=== PATIENT | male | born 1985 | race Two or more races ===

== ENCOUNTER 2023-10-20 15:32 | Inpatient (IN) | payer MEDICAID, OTHER ==
--- NOTE | 2023-10-20 16:58 | ED ---
Psych HPI - General Chief Complaint: Psychiatric Symptoms Stated Complaint: Depression Time Seen by Provider: 10/20/23 16:04 Source: patient, RN notes reviewed Mode of arrival: ambulatory - History of Present Illness Initial Comments: 37-year-old male with a history of drug abuse in the past also history of depression who is here for evaluation feeling depressed and like he does not want to be here anymore. He has no particular plan on hurting himself however. He does state he was discharged from his [facility] house after visiting his children earlier today. He is not sure why he was evicted he thought he had this figured out prior. He denies any drugs or alcohol at this time no fevers chills sweats no other complaints MD Complaint: feels depressed - Related Data Allergies Allergy/AdvReac Type Severity Reaction Status Date / Time No Known Allergies Allergy Verified 10/20/23 15:42 Review of Systems ROS Statement: Those systems with pertinent positive or pertinent negative responses have been documented in the HPI. ROS Other: All systems not noted in ROS Statement are negative. Past Medical History Past Medical History: Hypertension History of Any Multi-Drug Resistant Organisms: None Reported Past Psychological History: Bipolar, Depression, Schizophrenia Smoking Status: Current every day smoker Past Alcohol Use History: None Reported Past Drug Use History: None Reported General Exam - General Exam Comments Initial Comments: This is a well-developed well-nourished awake alert oriented x 4 male General appearance: alert, in no apparent distress Head exam: Present: atraumatic, normocephalic, normal inspection Eye exam: Present: normal appearance, PERRL, EOMI. Absent: scleral icterus, conjunctival injection, periorbital swelling ENT exam: Present: normal exam, mucous membranes moist Neck exam: Present: normal inspection. Absent: tenderness, meningismus, lymphadenopathy Respiratory exam: Present: normal lung sounds bilaterally. Absent: respiratory distress, wheezes, rales, rhonchi, stridor Cardiovascular Exam: Present: regular rate, normal rhythm, normal heart sounds. Absent: systolic murmur, diastolic murmur, rubs, gallop, clicks GI/Abdominal exam: Present: soft, normal bowel sounds. Absent: distended, tenderness, guarding, rebound, rigid Extremities exam: Present: normal inspection, full ROM, normal capillary refill. Absent: tenderness, pedal edema, joint swelling, calf tenderness Back exam: Present: normal inspection Neurological exam: Present: alert, oriented X3, CN II-XII intact Psychiatric exam: Present: depressed, flat affect Skin exam: Present: warm, dry, intact, normal color. Absent: rash Course Vital Signs 10/20/23 15:35 Temperature 98.7 F Pulse Rate 111 H Respiratory 18 Rate Blood Pressure 138/76 O2 Sat by Pulse 98 Oximetry Medical Decision Making - Medical Decision Making The patient was evaluated by EPS service for not to be a risk himself or anyone else he will be discharged home he has a bed lined up for tonight at [facility]. Was pt. sent in by a medical professional or institution (, JENNIFER, GRINDING MACHINE OPERATOR AUTOMATIC, urgent care, hospital, or [facility]...) When possible be specific @ -No Did you speak to anyone other than the patient for history (EMS, parent, family, police, friend...)? What history was obtained from this source @ -No Did you review nursing and triage notes (agree or disagree)? Why? @ -I reviewed and agree with nursing and triage notes Were old charts reviewed (outside hosp., previous admission, EMS record, old EKG, old radiological studies, urgent care reports/EKG's, [facility] records)? Report findings @ -No old charts were reviewed Differential Diagnosis (chest pain, altered mental status, abdominal pain women, abdominal pain men, vaginal bleeding, weakness, fever, dyspnea, syncope, headache, dizziness, GI bleed, back pain, seizure, CVA, palpatations, mental health, musculoskeletal)? @ -Pression] EKG interpreted by me (3pts min.). @ -Not indicated X-rays interpreted by me (1pt min.). @ -None done CT interpreted by me (1pt min.). @ -None done U/S interpreted by me (1pt. min.). @ -None done What testing was considered but not performed or refused? (CT, X-rays, U/S, labs)? Why? @ -None What meds were considered but not given or refused? Why? @ -None Did you discuss the management of the patient with other professionals (professionals i.e. , PA, GRINDING MACHINE OPERATOR [employer]OMATIC, lab, RT, psych nurse, social services analyst, retail merchandiser, teacher, forest fire management officer, case making machine operator)? Give summary @ -No Was smoking cessation discussed for >3mins.? @ -No Was critical care preformed (if so, how long)? @ -No Were there social determinants of health that impacted care today? How? (Homelessness, low income, unemployed, alcoholism, drug addiction, transportation, low edu. Level, literacy, decrease access to med. care, detention, rehab)? @ -Homeless Was there de-escalation of care discussed even if they declined (Discuss DNR or withdrawal of care, Hospice)? DNR status @ -No What co-morbidities impacted this encounter? (DM, HTN, Smoking, COPD, CAD, Cancer, CVA, ARF, Chemo, Hep., AIDS, mental health diagnosis, sleep apnea, morbid obesity)? @ -Depression, history of drug abuse Was patient admitted / discharged? Hospital course, mention meds given and route, prescriptions, significant lab abnormalities, going to OR and other pertinent info. @ -[hospital was discharged with outpatient follow-up Undiagnosed new problem with uncertain prognosis? @ -No Drug Therapy requiring intensive monitoring for toxicity (Heparin, Nitro, Insulin, Cardizem)? @ -No Were any procedures done? @ -No Diagnosis/symptom? @ -Depression Acute, or Chronic, or Acute on Chronic? @Chronic Uncomplicated (without systemic symptoms) or Complicated (systemic symptoms)? @ -Default Side effects of treatment? @ -No Exacerbation, Progression, or Severe Exacerbation? @ -No Poses a threat to life or bodily function? How? (Chest pain, [place], [place], pneumonia, PE, COPD, DKA, ARF, appy, cholecystitis, CVA, Diverticulitis, Homicidal, Suicidal, threat to staff... and all critical care pts) @ -No Disposition Clinical Impression: Depression Disposition: HOME SELF-CARE Instructions (If sedation given, give patient instructions): Depression (ED) Is patient prescribed a controlled substance at d/c from ED?: No Referrals: None,Stated [Primary Care Provider] - 1-2 days Time of Disposition: 17:35 Decision Date: 10/20/23 Decision Time: 17:35
--- NOTE | 2023-10-20 19:09 | ED ---
Medical Decision Making - Medical Decision Making The patient is now voicing suicidal thoughts and ideation. Patient will now be admitted per EPS. Disposition Clinical Impression: Depression, Suicidal ideation Disposition: TRANSFER TO PSYCH HOSP/UNIT Instructions (If sedation given, give patient instructions): Depression (ED) Referrals: None,Stated [Primary Care Provider] - 1-2 days Time of Disposition: 19:08 Decision Date: 10/20/23 Decision Time: 19:09
[2023-10-20] MEDS ORDERED: traZODone HCL 50 MG TAB PO PRN (23:27)
[2023-10-20] MEDS ORDERED: IBUPROFEN 600 MG TAB PO PRN (23:27)
[2023-10-20] MEDS ORDERED: LORazepam 2 MG/ML INJ IM PRN (23:27)
[2023-10-20] MEDS ORDERED: ACETAMINOPHEN TAB 325 MG TAB PO PRN (23:27)
[2023-10-20] MEDS ORDERED: HALOPERIDOL LACTATE 5 MG/ML 1 ML VIAL IM PRN (23:27)
[2023-10-20] MEDS ORDERED: MAGNESIUM HYDROXIDE 2,400 MG/30 ML CUP PO PRN (23:27)
[2023-10-21] MEDS: NICOTINE 14MG/24HR PATCH TRANSDERM SCH (08:24)
[2023-10-21 09:05] LABS: Appearance,Urine Clear (Clear); Bilirubin,Urine Negative (Negative); Blood,Urine Negative (Negative); Color,Urine Colorless; Glucose,Urine (UA) Negative (Negative); Ketones,Urine Negative (Negative); Leukocyte Esterase,Urine Small (Negative); Nitrite,Urine Negative (Negative); Protein,Urine Negative (Negative); Specific Gravity,Urine 1.004 (1.001-1.035); Squamous Epithelial Cell,Urine <1 /hpf (0-4); Urobilinogen,Urine <2.0 mg/dL (<2.0); WBC,Urine 1 /hpf (0-5)
[2023-10-21 11:00] LABS: Basophils % (A) 0 %; Eosinophils # (A) 0.2 k/uL (0-0.7); Eosinophils % (A) 2 %; HCT 42.6 % (39.0-53.0); HGB 13.7 gm/dL (13.0-17.5); Lymphocytes # (A) 2.7 k/uL (1.0-4.8); Lymphocytes % (A) 31 %; MCH 29.3 pg (25.0-35.0); MCHC 32.2 g/dL (31.0-37.0); Mean Platelet Volume 7.7; Monocytes # (A) 0.5 k/uL (0-1.0); Monocytes % (A) 5 %; Neutrophils # (A) 5.1 k/uL (1.3-7.7); Neutrophils % (A) 60 %; Platelet Count 386 k/uL (150-450); RBC 4.69 m/uL (4.30-5.90); RDW 13.8 % (11.5-15.5); WBC 8.5 k/uL (3.8-10.6)
[2023-10-21 11:13] LABS: ALT 20 U/L (4-49); AST 23 U/L (17-59); African American GFR (CKD) >90 (>60 ml/min/1.73 sqM); Albumin 3.9 g/dL (3.5-5.0); Alkaline Phosphatase 75 U/L (38-126); Anion Gap 7 mmol/L; Bilirubin, Delta 0.2 mg/dL (0.0-0.2); Bilirubin,Unconjugated 0.9 mg/dL (0.0-1.1); Blood Urea Nitrogen 19 mg/dL (9-20); Calcium 9.7 mg/dL (8.4-10.2); Carbon Dioxide 31 mmol/L (22-30); Chloride 105 mmol/L (98-107); Glucose 85 mg/dL (74-99); Non-African American GFR(CKD) >90 (>60 ml/min/1.73 sqM); Potassium 4.3 mmol/L (3.5-5.1); Sodium 143 mmol/L (137-145); Total Bilirubin 1.1 mg/dL (0.2-1.3); Total Protein 7.3 g/dL (6.3-8.2)
--- NOTE | 2023-10-21 12:33 | P.HP ---
Psychiatric H&P - . H&P Date: 10/21/23 History & Physical: Allergies Allergy/AdvReac Type Severity Reaction Status Date / Time No Known Allergies Allergy Verified 10/20/23 19:29 Vital Signs Temp 97.8 F 10/21/23 06:42 Pulse 104 H 10/21/23 06:42 Resp 18 10/21/23 06:42 BP 106/55 10/21/23 06:42 Pulse Ox 97 10/20/23 23:26 FiO2 Intake & Output 10/20/23 10/21/23 10/21/23 18:59 06:59 18:59 Weight 99.79 kg 100.2 kg Laboratory Last Values Influenza Type A (PCR) Not Detected (Not Detectd) 10/20/23 22:05 Influenza Type B (PCR) Not Detected (Not Detectd) 10/20/23 22:05 RSV (PCR) Not Detected (Not Detectd) 10/20/23 22:05 SARS-CoV-2 (PCR) Not Detected (Not Detectd) 10/20/23 22:05 10/21/23 09:00 IDENTIFYING DATA: Patient is a 37-year-old male was living in a 3/4 house. 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 HPI: Patient presented to the hospital on 10/19. As per ED note, patient was kicked out of his sober living house, after visiting with his children. Patient initially denied SI, but upon discharge from the ED, patient voiced SI and thoughts. Upon todays interview, patient states he was on an outing with with [facility] house, but took off and stayed the night with his kids, and when he got back the next morning, they told him they were kicking his out. Patient states that he is sober for 41 days. States he is feeling hopeless, and worthless. Other stressors include missing his children. Patient states that he has problems initiating sleep, but once he is asleep, he stays asleep. He states he has increased anxiety. continues state that he is feeling very depressed and hopeless, worthless. He did state that he feels like he is having suicidal thoughts however these are passive thoughts no intent or plan. He describes them as "I just don't want to be here" but patient currently denies homicidal ideations intent or plan. At this time patient denies any auditory or visual hallucinations. Patient denies any flight of ideas racing thoughts and increased in goal directed behavior. Patient admits to using nicotine. PAST PSYCHIATRIC HISTORY: Patient states that he was [facility]. He does not follow up with anyone. States he is on visteral, Remeron, and abilify. Attempted suicide when he was 12 by hanging. PMH:As per ER note ALLERGIES: as per EMR CHEMICAL DEPENDENCY HISTORY: as per HPI FAMILY PSYCHIATRIC/SUBSTANCE USE HISTORY: mother has depression SOCIAL HISTORY: Patient was born and raised in [place], [place] Graduated high school. Works as a cook. homeless. [facility], for possession of a firearm, in 2020. MENTAL STATUS EXAM: General Appearance: Patient appears to be stated age is alert, directable, and attempts to cooperate. Patient appears to have poor hygiene and grooming. Malodorous. Wearing a hospital gown, multiple tattoos on body and face Behavior: Patient is seated without any agitated behavior. Attempts to cooperate. Speech: Patient's speech is fluent and nonpressured. Mood/Affect: Patient reports their mood is hopeless and depressed, affect is congruent and constricted. Suicidality/Homicidality: Patient denies having any homicidal ideation intent or plan. Denies any suicidal ideations intent or plan Perceptions: Patient denies any visual hallucinations [and denies any auditory hallucinations Though content/process: There is no evidence of any delusional thought content and thought process is linear and goal-directed. Focused on his stressors Memory and concentration: AOX3, grossly intact for the purposes of this session. Can spell "WORLD" backward Judgment and insight: poor STRENGTHS/WEAKNESSES: strength is that patient is resilient. Weakness is that patient has poor judgment and is impulsive INTELLECT: average IMPRESSIONS: bipolar disorder, depressed episode adjustment disorder with disturbance in mood and anxiety cocaine use disorder, in early remission opoid use disorder, in early remission nicotine dependance PLAN: -Patient is admitted under voluntary status to MHU for stabilization of psychiatric symptoms and safety. Patient has signed adult voluntary form and medication consent and is placed in patient's chart. -Medications : Will start patient on Abilify 5mg daily for mood stabilization, Zoloft 50 daily mood/anxiety Doxepin 10mg qhs for sleep, visteral 50 mg [id number] prn for anxiety. -Ativan and Haldol PRN for agitation/aggression -Patient was informed of the risks, benefits and side effects of the medication and patient verbally consented to taking the medications. -Internal Medicine consult to perform medical evaluation and physical. -NRT - nicotine patch -SW on board for discharge planning. Encourage patient to participate in groups to work on coping skills. 10/21/23 12:14 10/21/23 12:30
[2023-10-21] MEDS: SERTRALINE 50 MG TAB PO SCH (12:53)
[2023-10-21 15:56] LABS: Chol/HDL Ratio 3.03 Ratio; LDL Cholesterol,Calculated 106.1 mg/dL (0.0-131.0); VLDL Calculation 15.06 mg/dL (5.00-40.00)
--- NOTE | 2023-10-21 17:42 | P.MDCNMH ---
History of Present Illness H&P Date: 10/21/23 Chief Complaint: medical evaluation 37-year-old man with obesity, class I, presented for mental health evaluation. Medicine was consulted for medical management. Patient has no complaints at this time. He was woken up from sleep where he was noted to have heavy snoring and appeared to have some mild disorientation until he was fully awake. Patient says that he has suspected he has had sleep apnea in the past and tends to snore and feel excessive daytime sleepiness. Otherwise, he denies a history of hypertension, hyperlipidemia, heart disease, stroke, kidney disease. Today, patient is afebrile, 114/54, heart rate 104, 97% on room air. CBC is unremarkable. Basic metabolic panel shows CO2 of 31, otherwise unremarkable. Lipid panel is unremarkable. UA shows small leukocyte esterase, otherwise unremarkable. Influenza A, B, RSV, COVID were negative. No imaging to review. All Systems reviewed and pertinent positives and negatives noted in HPI, all other symptoms are negative Gen: In NAD, non-toxic HEENT: normocephalic, atraumatic, hearing acuity is intant, mucous membranes moist CVS: perfusing all extremities well, no pitting edema, Respiratory: symmetric chest expansion, no accessory muscle use, GI: soft, NTTP, ND, : no suprapubic tenderness, no CVA tenderness MSK/Derm: no rashes, cyanosis Neuro: CN II-XII intact, no motor weakness, Psych: cooperative, euthymic mood, judgment and insight is intact Labs and imaging as above Assessment/plan: Obesity, class I Suspected sleep apnea, obstructive -outpatient weight loss referral -diet and exercise counseling, consider serologist consult -outpatient sleep study referral Depression -care per primary team Pt is full code. Past Medical History Past Medical History: Hypertension History of Any Multi-Drug Resistant Organisms: None Reported Past Surgical History: No Surgical Hx Reported Past Psychological History: Bipolar, Depression, Schizophrenia Smoking Status: Current every day smoker Past Alcohol Use History: None Reported Past Drug Use History: Cocaine Medications and Allergies Home Medications Medication Instructions Recorded Confirmed Type ARIPiprazole [Abilify] 2 mg PO DAILY 10/20/23 10/20/23 History Doxepin [SINEquan] 10 mg PO BID-W/MEALS 10/20/23 10/20/23 History Mirtazapine [Remeron] 15 mg PO HS 10/20/23 10/20/23 History Allergies Allergy/AdvReac Type Severity Reaction Status Date / Time No Known Allergies Allergy Verified 10/20/23 19:29 Physical Exam Osteopathic Statement: *. No significant issues noted on an osteopathic structural exam other than those noted in the History and Physical/Consult. Vitals: Vital Signs Temp Pulse Resp BP Pulse Ox 10/21/23 06:42 97.8 F 104 H 18 106/55 10/20/23 23:26 97.1 F L 95 16 014/54 97 Intake and Output 10/21/23 10/21/23 10/21/23 06:59 14:59 22:59 Other: Weight 100.2 kg Cranial Nerve Examination - Cranial Nerves Cranial Nerve II- Optic: Intact Cranial Nerve III- Oculomotor: Intact Cranial Nerve IV- Trochlear: Intact Cranial Nerve V- Trigeminal: Intact Cranial Nerve - Abducens: Intact Cranial Nerve VII- Facial: Intact Cranial Nerve VIII- Auditory: Intact Cranial Nerve IX- Glossopharyngeal: Intact Cranial Nerve X- Vagus: Intact Cranial Nerve XI- Accessory: Intact Cranial Nerve XII- Hypoglossal: Intact Results CBC & Chem 7: 10/21/23 10:02 10/21/23 10:02 Labs: Abnormal Lab Results - Last 24 Hours (Table) 10/21/23 10/21/23 Range/Units 08:52 10:02 Carbon Dioxide 31 H (22-30) mmol/L Ur Leukocyte Esterase Small H (Negative)
[2023-10-21 19:46] LABS: Urine Alcohol Negative (Negative); Urine Barbiturate Negative (Negative); Urine Cocaine Positive (Negative); Urine Methadone Negative (Negative); Urine Opiates Negative (Negative); Urine Phencyclidine Negative (Negative)
[2023-10-21] MEDS: DOXEPIN 10 MG CAP PO SCH (20:09)
[2023-10-21] MEDS: MAG HYDROX/AL HYDROX/SIMETH 355 ML BOTTLE PO PRN (20:30)
[2023-10-21] MEDS: hydrOXYzine pamoate 25 MG CAP PO PRN (22:15)
[2023-10-22 07:25] VITALS: TEMP 97.7
[2023-10-22] MEDS: ARIPiprazole 5 MG TAB PO SCH (08:26)
--- NOTE | 2023-10-22 09:42 | P.PN ---
Progress Note - Text Progress Note Date: 10/22/23 Interval History: Patient was seen in his room and was directable and agreeable to speak with wr iter in the office. Patient stated that he did not sleep well last night, and had problems initiating sleep, scientific writer spoke to patient about increasing his doxepin, patient agreeable. Patient states his mood and anxiety are not improving yet. Patient is not attending groups. Encouraged patient to do so. Patient claims his appetite is good. Patient offered no other complaints. At this time patient denies any suicidal or homicidal ideations, intent or plan. Patient denies any auditory, visual hallucinations and denies any paranoia or delusions. Patient denies any side effects from the medications and has been compliant with meds. MENTAL STATUS EXAM: General Appearance: Patient appears to be stated age is alert, directable, and attempts to cooperate. Patient appears to have poor hygiene and grooming. Malodorous. Wearing a hospital gown, multiple tattoos on body and face Behavior: Patient is seated without any agitated behavior. Attempts to cooperate. Speech: Patient's speech is fluent and nonpressured. Mood/Affect: Patient reports their mood is hopeless and depressed, affect is congruent and constricted. Suicidality/Homicidality: Patient denies having any homicidal ideation intent or plan. Denies any suicidal ideations intent or plan Perceptions: Patient denies any visual hallucinations [and denies any auditory hallucinations Though content/process: There is no evidence of any delusional thought content and thought process is linear and goal-directed. Focused on his stressors Memory and concentration: AOX3, grossly intact for the purposes of this session. Judgment and insight: poor IMPRESSIONS: bipolar disorder, depressed episode adjustment disorder with disturbance in mood and anxiety cocaine use disorder, in early remission opoid use disorder, in early remission nicotine dependance PLAN: -Patient is admitted under voluntary status to MHU for stabilization of psychiatric symptoms and safety. -Medications : Abilify 5mg daily for mood stabilization, increase Zoloft 100 daily mood/anxiety increase Doxepin 25mg qhs for sleep, visteral 50 mg [id number] prn for anxiety. -Ativan and Haldol PRN for agitation/aggression -NRT - nicotine patch -SW on board for discharge planning. Encourage patient to participate in groups to work on coping skills. likely discharge [facility]day to [facility]
[2023-10-22] MEDS: LORazepam 1 MG TAB PO PRN (18:35)
[2023-10-22] MEDS: DOXEPIN 25 MG CAP PO SCH (20:35)
[2023-10-23 07:27] VITALS: RESP 16
[2023-10-23] MEDS: SERTRALINE 100 MG TAB PO SCH (08:34)
--- NOTE | 2023-10-23 10:21 | P.PN ---
Progress Note - Text Progress Note Date: 10/23/23 Interval History: Patient was seen in group and was directable and agreeable to speak with newswriter in the office. Patient stated his mood and anxiety are improving mildly, however he is still having some hopeless thoughts. Patient is now attending groups. States he slept well last night. Patient claims his appetite is good. Patient offered no other complaints. At this time patient denies any suicidal or homicidal ideations, intent or plan. Patient denies any auditory, visual hallucinations and denies any paranoia or delusions. Patient denies any side effects from the medications and has been compliant with meds. MENTAL STATUS EXAM: General Appearance: Patient appears to be stated age is alert, directable, and attempts to cooperate. Patient appears to have improving hygiene and grooming. Malodorous. Wearing a hospital gown, multiple tattoos on body and face Behavior: Patient is seated without any agitated behavior. Attempts to cooperate. Speech: Patient's speech is fluent and nonpressured. Mood/Affect: Patient reports their mood is mildly improving, affect is congruent and constricted. Suicidality/Homicidality: Patient denies having any homicidal ideation intent or plan. Denies any suicidal ideations intent or plan Perceptions: Patient denies any visual hallucinations and denies any auditory hallucinations Though content/process: There is no evidence of any delusional thought content and thought process is linear and goal-directed. less Focused on his stressors Memory and concentration: AOX3, grossly intact for the purposes of this session. Judgment and insight: mildly improving IMPRESSIONS: bipolar disorder, depressed episode adjustment disorder with disturbance in mood and anxiety cocaine use disorder, in early remission opoid use disorder, in early remission nicotine dependance PLAN: -Patient is admitted under voluntary status to MHU for stabilization of psychiatric symptoms and safety. -Medications : Abilify 5mg daily for mood stabilization, Zoloft 100 daily mood/anxiety Doxepin 25mg qhs for sleep, visteral 50 mg [id number] prn for anxiety. -Ativan and Haldol PRN for agitation/aggression -NRT - nicotine patch -SW on board for discharge planning. Encourage patient to participate in groups to work on coping skills. likely discharge saturday to half-way, if patient continues to improve
[2023-10-23] MEDS: haloperidoL 5 MG TAB PO PRN (14:15)
[2023-10-24 07:08] VITALS: BP 128/65; PULSE 98
--- NOTE | 2023-10-24 11:21 | P.DS ---
Providers Date of admission: 10/20/23 23:23 Expected date of discharge: 10/24/23 Attending physician: Souleymane Barger MD Consults: 10/20/23 23:27 Consult Physician Routine Consulting Provider: Bradley Enriquez Consult Reason/Comments: Medical H&P Do you want consulting provider notified?: Yes Primary care physician: Stated None - Discharge Diagnosis(es) (1) Bipolar disorder, current episode mixed Current Visit: Yes Status: Acute Priority: High (2) Adjustment disorder with mixed disturbance of emotions and conduct Current Visit: Yes Status: Acute Priority: High (3) Cocaine use disorder, mild, in early remission Current Visit: Yes Status: Acute Priority: Medium (4) Opioid use disorder, mild, in early remission Current Visit: Yes Status: Acute Priority: Medium (5) Nicotine dependence Current Visit: Yes Status: Acute Priority: Low Hospital Course: Admission HPI: Admission note was completed by marketing writer "Patient presented to the hospital on 10/19. As per ED note, patient was kicked out of his sober living house, after visiting with his children. Patient initially denied SI, but upon discharge from the ED, patient voiced SI and thoughts. Upon todays interview, patient states he was on an outing with with [address] house, but took off and stayed the night with his kids, and when he got back the next morning, they told him they were kicking his out. Patient states that he is sober for 41 days. States he is feeling hopeless, and worthless. Other stressors include missing his children. Patient states that he has problems initiating sleep, but once he is asleep, he stays asleep. He states he has increased anxiety. continues state that he is feeling very depressed and hopeless, worthless. He did state that he feels like he is having suicidal thoughts however these are passive thoughts no intent or plan. He describes them as "I just don't want to be here" but patient currently denies homicidal ideations intent or plan. At this time patient denies any auditory or visual hallucinations. Patient denies any flight of ideas racing thoughts and increased in goal directed behavior. Patient admits to using nicotine." Hospital course: Upon admission to the unit patient was directable and agreeable to commence treatment and signed adult voluntary form. Patient was initially fairly depressed, isolative however with time and treatment he eventually got along well with other patients on the unit and followed unit protocol. Patient was compliant with the medications and denied any side effects throughout hospital course. Patient was started on Abilify and increased to dose of 5 mg daily for mood stabilization, Zoloft 100 mg daily for mood/anxiety, doxepin 25 mg nightly for sleep/mood, Vistaril as needed for anxiety. Patient spoke of his stressors and engaged in therapy both group and individual. Patient was also seen by medical team for history and physical exam. Throughout the course of the hospitalization patient gradually improved with regards to mood, anxiety, suicidal thoughts, sleep and became more future oriented with improved insight and judgment. On the day of discharge patient denied any suicidal or homicidal ideations intent or plan denied any auditory or visual hallucinations. Patient endorsed wanting to live for his health and family/kids. The patient denied any access to guns or weapons. Patient denied any paranoia and did not endorse any delusions. Patient does have a significant history of substance abuse and was counseled on abstaining from all substances including alcohol and marijuana. Patient was offered however declined inpatient substance-abuse rehab. Patient elected to do outpatient substance use treatment program through [facility]. Patient was also counseled on the medications and need for regular compliance and was encouraged to follow-up with their outpatient appointment for mental health and also for primary care. personal support worker will assist patient with getting him into the skilled nursing today and set up with outpatient [facility]. Mental status exam: General Appearance: Patient appears to be well-built, several tattoos, stated age is alert, pleasant, and cooperative. Patient is in no acute distress and has improved hygiene and grooming Behavior: Patient is calmly seated without any agitated behavior. Speech: Patient's speech is fluent and nonpressured. Mood/Affect: Patient reports their mood is "good", affect is congruent and euthymic. Suicidality/Homicidality: Patient denies having any suicidal or homicidal ideation intent or plan. Perceptions: Patient denies any auditory or visual hallucinations. Though content/process: There is no evidence of any delusional thought content and thought process is linear and goal-directed. More future oriented Memory and concentration: AOX3, grossly intact for the purposes of this session. Can spell "WORLD" backwards correctly. Judgment and insight: Chronically poor, however has improved with guarded prognosis Impression: bipolar disorder, depressed episode adjustment disorder with disturbance in mood and anxiety cocaine use disorder, in early remission opoid use disorder, in early remission nicotine dependance Plan: -Continue with discharge today as patient has improved and stabilized psychiatrically and is not currently an imminent threat to himself and/or others. Patient will remain at chronically elevated risk for harm to self and/or others due to his impulsivity and polysubstance abuse. -Continue medications: Abilify p.o. 5 mg daily for mood stabilization, Zoloft 100 mg daily for mood/anxiety, doxepin 25 mg nightly for sleep/mood, Vistaril 50 mg daily as needed for anxiety. -Patient was counseled on the need for medication compliance and appropriate follow-up at mental health and also primary care for medical issues. Patient verbalized understanding and agreed. -Social work to help coordinate patient's discharge today to the skilled nursing with [facility] follow-up. Social work also to arrange for patients follow up appointments with [facility] for psychiatric care along with follow up with primary care provider. -Patient counseled on abstaining from recreational drugs and marijuana and alcohol. Was informed/educated on the adverse effects on their physical and mental health. Patient verbally agreed and understood. Patient was offered jacob bstance abuse treatment however declined at this time. -Patient was instructed to return to the hospital or seek immediate medical care if their psychiatric or medical symptoms do worsen or reoccur. Allergies Allergy/AdvReac Type Severity Reaction Status Date / Time No Known Allergies Allergy Verified 10/20/23 19:29 Laboratory Results WBC 8.5 k/uL (3.8-10.6) 10/21/23 10:02 RBC 4.69 m/uL (4.30-5.90) 10/21/23 10:02 Hgb 13.7 gm/dL (13.0-17.5) 10/21/23 10:02 Hct 42.6 % (39.0-53.0) 10/21/23 10:02 MCV 91.0 fL (80.0-100.0) 10/21/23 10:02 MCH 29.3 pg (25.0-35.0) 10/21/23 10:02 MCHC 32.2 g/dL (31.0-37.0) 10/21/23 10:02 RDW 13.8 % (11.5-15.5) 10/21/23 10:02 Plt Count 386 k/uL (150-450) 10/21/23 10:02 MPV 7.7 10/21/23 10:02 Neutrophils % 60 % 10/21/23 10:02 Lymphocytes % 31 % 10/21/23 10:02 Monocytes % 5 % 10/21/23 10:02 Eosinophils % 2 % 10/21/23 10:02 Basophils % 0 % 10/21/23 10:02 Neutrophils # 5.1 k/uL (1.3-7.7) 10/21/23 10:02 Lymphocytes # 2.7 k/uL (1.0-4.8) 10/21/23 10:02 Monocytes # 0.5 k/uL (0-1.0) 10/21/23 10:02 Eosinophils # 0.2 k/uL (0-0.7) 10/21/23 10:02 Basophils # 0.0 k/uL (0-0.2) 10/21/23 10:02 Sodium 143 mmol/L (137-145) 10/21/23 10:02 Potassium 4.3 mmol/L (3.5-5.1) 10/21/23 10:02 Chloride 105 mmol/L (98-107) 10/21/23 10:02 Carbon Dioxide 31 mmol/L (22-30) H 10/21/23 10:02 Anion Gap 7 mmol/L 10/21/23 10:02 BUN 19 mg/dL (9-20) 10/21/23 10:02 Creatinine 0.99 mg/dL (0.66-1.25) 10/21/23 10:02 Est GFR (CKD-EPI)AfAm >90 (>60 ml/min/1.73 sqM) 10/21/23 10:02 Est GFR (CKD-EPI)NonAf >90 (>60 ml/min/1.73 sqM) 10/21/23 10:02 Glucose 85 mg/dL (74-99) 10/21/23 10:[address] Glu mg/dL 120 mg/dL 10/21/23 10:02 Hemoglobin A1c 5.8 % (<=6.0) 10/21/23 10:02 Calcium 9.7 mg/dL (8.4-10.2) 10/21/23 10:02 Total Bilirubin 1.1 mg/dL (0.2-1.3) 10/21/23 10:02 Conjugated Bilirubin 0.0 mg/dL (0.0-0.3) 10/21/23 10:02 Unconjugated Bilirubin 0.9 mg/dL (0.0-1.1) 10/21/23 10:02 Delta Bilirubin 0.2 mg/dL (0.0-0.2) 10/21/23 10:02 AST 23 U/L (17-59) 10/21/23 10:02 ALT 20 U/L (4-49) 10/21/23 10:02 Alkaline Phosphatase 75 U/L (38-126) 10/21/23 10:02 Total Protein 7.3 g/dL (6.3-8.2) 10/21/23 10:02 Albumin 3.9 g/dL (3.5-5.0) 10/21/23 10:02 Triglycerides 75.30 mg/dL (0.00-149.00) 10/21/23 10:02 Cholesterol 181.00 mg/dL (0.00-200.00) 10/21/23 10:02 LDL Cholesterol, Calc 106.1 mg/dL (0.0-131.0) 10/21/23 10:02 VLDL Cholesterol, Calc 15.06 mg/dL (5.00-40.00) 10/21/23 10:02 HDL Cholesterol 59.80 mg/dL (40.00-60.00) 10/21/23 10:02 Cholesterol/HDL Ratio 3.03 Ratio 10/21/23 10:02 TSH 0.512 mIU/L (0.465-4.680) 10/21/23 10:02 Urine Color Colorless 10/21/23 08:52 Urine Appearance Clear (Clear) 10/21/23 08:52 Urine pH 6.0 (5.0-8.0) 10/21/23 08:52 Ur Specific Fate 1.004 (1.001-1.035) 10/21/23 08:52 Urine Protein Negative (Negative) 10/21/23 08:52 Urine Glucose (UA) Negative (Negative) 10/21/23 08:52 Urine Ketones Negative (Negative) 10/21/23 08:52 Urine Blood Negative (Negative) 10/21/23 08:52 Urine Nitrite Negative (Negative) 10/21/23 08:52 Urine Bilirubin Negative (Negative) 10/21/23 08:52 Urine Urobilinogen <2.0 mg/dL (<2.0) 10/21/23 08:52 Ur Leukocyte Esterase Small (Negative) H 10/21/23 08:52 Urine WBC 1 /hpf (0-5) 10/21/23 08:52 Ur Squamous Epith Cells <1 /hpf (0-4) 10/21/23 08:52 Urine Opiates Screen Negative (Negative) 10/21/23 08:52 Urine Methadone Screen Negative (Negative) 10/21/23 08:52 Ur Propoxyphene Screen Negative (Negative) 10/21/23 08:52 Urine Barbiturates Negative (Negative) 10/21/23 08:52 Ur Phencyclidine Scrn Negative (Negative) 10/21/23 08:52 Ur Amphetamine Screen Negative (Negative) 10/21/23 08:52 U Benzodiazepines Scrn Negative (Negative) 10/21/23 08:52 Urine Cocaine Screen Positive (Negative) A 10/21/23 08:52 U Cannabinoids Screen Negative (Negative) 10/21/23 08:52 Urine Alcohol Negative (Negative) 10/21/23 08:52 Influenza Type A (PCR) Not Detected (Not Detectd) 10/20/23 22:05 Influenza Type B (PCR) Not Detected (Not Detectd) 10/20/23 22:05 RSV (PCR) Not Detected (Not Detectd) 10/20/23 22:05 SARS-CoV-2 (PCR) Not Detected (Not Detectd) 10/20/23 22:05 Vital Signs Temp 97.7 F 10/23/23 06:57 Pulse 98 10/24/23 06:46 Resp 16 10/23/23 06:57 BP 128/65 10/24/23 06:46 Pulse Ox 100 10/22/23 06:48 FiO2 Patient Condition at Discharge: Stable Plan - Discharge Summary Discharge Rx Participant: Yes New Discharge Prescriptions: New Doxepin [SINEquan] 25 mg PO HS 30 Days #30 cap hydrOXYzine pamoate [Vistaril] 50 mg PO DAILY PRN 30 Days #60 cap PRN Reason: Anxiety Sertraline [Zoloft] 100 mg PO DAILY 30 Days #30 tab ARIPiprazole [Abilify] 5 mg PO DAILY 30 Days #30 tab Nicotine 14Mg/24Hr Patch [Habitrol] 1 patch TRANSDERM DAILY 14 Days #14 patch Discontinued Doxepin [SINEquan] 10 mg PO BID-W/MEALS Mirtazapine [Remeron] 15 mg PO HS ARIPiprazole [Abilify] 2 mg PO DAILY Discharge Medication List ARIPiprazole [Abilify] 5 mg PO DAILY 30 Days #30 tab 10/24/23 [Rx] Doxepin [SINEquan] 25 mg PO HS 30 Days #30 cap 10/24/23 [Rx] Nicotine 14Mg/24Hr Patch [Habitrol] 1 patch TRANSDERM DAILY 14 Days #14 patch 10/24/23 [Rx] Sertraline [Zoloft] 100 mg PO DAILY 30 Days #30 tab 10/24/23 [Rx] hydrOXYzine pamoate [Vistaril] 50 mg PO DAILY PRN 30 Days #60 cap 10/24/23 [Rx] Follow up Appointment(s)/Referral(s): None,Stated [Primary Care Provider] - 1-2 days Patient Instructions/Handouts: Depression (ED) Activity/Diet/Wound Care/Special Instructions: Avoid the use of street drugs and alcohol. Take all medications as prescribed. When you are in need of refills on your medications, please contact your medical provider and/or outpatient psychiatrist/provider to have this done. Please go to your scheduled outpatient appointment for aftercare treatment. If symptoms return or become worse, call the crisis line at and/or go to the nearest emergency room for evaluation. National Suicide Hotline 988 Discharge Disposition: OTHER INSTITUTION NOT DEFINED
== END 2023-10-24 15:30 | disposition home or self-care (01) | DRG 753 ==
LOC: EC 15:32 → 3MHU 23:23
PROVIDERS: ADMIT Psychiatry & Neurology Psychiatry; ATTEND Psychiatry & Neurology Psychiatry
DX: F31.60 Bipolar disorder, current episode mixed, unspecified (principal); E66.9 Obesity, unspecified; R06.83 Snoring; Z68.32 Body mass index [BMI] 32.0-32.9, adult; F11.11 Opioid abuse, in remission; F14.11 Cocaine abuse, in remission; F17.200 Nicotine dependence, unspecified, uncomplicated; F41.9 Anxiety disorder, unspecified; F43.25 Adjustment disorder with mixed disturbance of emotions and conduct; I10 Essential (primary) hypertension; R45.851 Suicidal ideations; Z79.899 Other long term (current) drug therapy; Z81.8 Family history of other mental and behavioral disorders; Z11.52 Encounter for screening for COVID-19; Z59.01 Sheltered homelessness
CPT/HCPCS: 80053; 80061; 80306; 81001; 82075; 82248; 83036; 84443; 85025; 87636; 99285

== ENCOUNTER 2023-12-14 10:54 | Emergency (ER) | payer OTHER ==
[2023-12-14 11:11] VITALS: BP 113/78; PULSE 101; RESP 20; TEMP 98.4
--- NOTE | 2023-12-14 11:55 | ED ---
Eye Problem HPI - General Chief complaint: Eye Problems Stated complaint: L Eye Problem Time Seen by Provider: 12/14/23 11:53 Source: patient, RN notes reviewed Mode of arrival: ambulatory Limitations: no limitations - History of Present Illness Initial comments: 38-year-old male presenting with left eye irritation x 2 weeks. States he sawing vinyl and believes he particle flew into his eye. He reports irritation and redness have been worsening since this occurred and is now having difficulty seeing out of this eye. Denies fevers or chills. - Related Data Previous Rx's Medication Instructions Recorded ARIPiprazole [Abilify] 5 mg PO DAILY 30 Days #30 tab 10/24/23 Doxepin [SINEquan] 25 mg PO HS 30 Days #30 cap 10/24/23 Nicotine 14Mg/24Hr Patch [Habitrol] 1 patch TRANSDERM DAILY 14 Days 10/24/23 #14 patch Sertraline [Zoloft] 100 mg PO DAILY 30 Days #30 tab 10/24/23 hydrOXYzine pamoate [Vistaril] 50 mg PO DAILY PRN 30 Days #60 cap 10/24/23 Allergies Allergy/AdvReac Type Severity Reaction Status Date / Time No Known Allergies Allergy Verified 12/14/23 11:11 Review of Systems ROS Statement: Those systems with pertinent positive or pertinent negative responses have been documented in the HPI. ROS Other: All systems not noted in ROS Statement are negative. Past Medical History Past Medical History: Hypertension History of Any Multi-Drug Resistant Organisms: None Reported Past Surgical History: No Surgical Hx Reported Past Psychological History: Bipolar, Depression, Schizophrenia Smoking Status: Current every day smoker Past Alcohol Use History: None Reported Past Drug Use History: Cocaine General Exam - General Exam Comments Initial Comments: Visual Physical Exam Vital signs reviewed General: Well-appearing, nontoxic, no acute distress. Head: Normocephalic, atraumatic Eyes: Left conjunctiva injected with surrounding edema and discharge ENT: Airway patent Chest: Nonlabored breathing Skin: No visual rash, normal skin tone Neuro: Alert and oriented 3 Musculoskeletal: No gross abnormalities Limitations: no limitations General appearance: alert, in no apparent distress Head exam: Present: atraumatic, normocephalic Eye exam: Present: conjunctival injection, other (Left eye: Diffuse opacity in anterior chamber with conjunctival injection and erythema and edema of upper eyelid. EOM's intact). Absent: normal appearance ENT exam: Present: normal exam, mucous membranes moist Neck exam: Present: normal inspection. Absent: tenderness, meningismus, lymphadenopathy Respiratory exam: Present: normal lung sounds bilaterally. Absent: respiratory distress, wheezes, rales, rhonchi, stridor Cardiovascular Exam: Present: regular rate, normal rhythm, normal heart sounds. Absent: systolic murmur, diastolic murmur, rubs, gallop, clicks Psychiatric exam: Present: normal affect, normal mood Skin exam: Present: warm, dry, intact, normal color. Absent: rash Course Vital Signs 12/14/23 11:09 Temperature 98.4 F Pulse Rate 101 H Respiratory 20 Rate Blood Pressure 113/78 O2 Sat by Pulse 99 Oximetry Medical Decision Making - Medical Decision Making I completed the quick note portion of this chart signed Mira Vee PA-C Was pt. sent in by a medical professional or institution (JENNIFER Avina, ASSISTANT EDUCATION DIRECTOR, urgent care, hospital, or [facility]...) When possible be specific @ -No Did you speak to anyone other than the patient for history (EMS, parent, family, police, friend...)? What history was obtained from this source @ -No Did you review nursing and triage notes (agree or disagree)? Why? @ -I reviewed and agree with nursing and triage notes Were old charts reviewed (outside hosp., previous admission, EMS record, old EKG, old radiological studies, urgent care reports/EKG's, [facility] records)? Report findings @ -No old charts were reviewed Differential Diagnosis (chest pain, altered mental status, abdominal pain women, abdominal pain men, vaginal bleeding, weakness, fever, dyspnea, syncope, headache, dizziness, GI bleed, back pain, seizure, CVA, palpatations, mental health, musculoskeletal)? @ -Orbital cellulitis, periorbital cellulitis, hypopyon, bacterial conjunctivitis, corneal abrasion/ulceration EKG interpreted by me (3pts min.). @ -None X-rays interpreted by me (1pt min.). @ -None done CT interpreted by me (1pt min.). @ -None done U/S interpreted by me (1pt. min.). @ -None done What testing was considered but not performed or refused? (CT, X-rays, U/S, labs)? Why? @ -None What meds were considered but not given or refused? Why? @ -None Did you discuss the management of the patient with other professionals (professionals i.e. , PA, ASSISTANT EDUCATION DIRECTOR, lab, RT, psych nurse, social security benefits interviewer, pediatric dermatologist, teacher, geographic area intelligence officer, registered nurse hh case manager)? Give summary @ -Case discussed with Dr. Neely tailer out who accepts transfer to his office at [facility] at this time. Was smoking cessation discussed for >3mins.? @ -No Was critical care preformed (if so, how long)? @ -No Were there social determinants of health that impacted care today? How? (Homelessness, low income, unemployed, alcoholism, drug addiction, transportation, low edu. Level, literacy, decrease access to med. care, [facility], rehab)? @ -No Was there de-escalation of care discussed even if they declined (Discuss DNR or withdrawal of care, Hospice)? DNR status @ -No What co-morbidities impacted this encounter? (DM, HTN, Smoking, COPD, CAD, Cancer, CVA, ARF, Chemo, Hep., AIDS, mental health diagnosis, sleep apnea, morbid obesity)? @ -None Was patient admitted / discharged? Hospital course, mention meds given and route, prescriptions, significant lab abnormalities, going to OR and other pertinent info. @ -Patient was transferred to [facility] to Dr. Neely. Patient was seen and evaluated for left eye pain/redness x 2 weeks after foreign body flew into his eye while cutting vinyl with a saw. He is having decreased vision with opacity in anterior chamber and surrounding orbital cellulitis. No corneal abrasion or ulceration visualized on fluorescein stain. Case discussed with Dr. Neely who accepts transfer to [facility] for immediate ophthalmology consultation. Case discussed with my attending Dr. Carlos. Patient agrees to walk to this facility immediately as it is located across the street from the hospital. Undiagnosed new problem with uncertain prognosis? @ -No Drug Therapy requiring intensive monitoring for toxicity (Heparin, Nitro, Insulin, Cardizem)? @ -No Were any procedures done? @ -No Diagnosis/symptom? @ -Orbital cellulitis of left eye with hypopyon Acute, or Chronic, or Acute on Chronic? @ -Acute Uncomplicated (without systemic symptoms) or Complicated (systemic symptoms)? @ -Uncomplicated Side effects of treatment? @ -No Exacerbation, Progression, or Severe Exacerbation? @ -No Poses a threat to life or bodily function? How? (Chest pain, [place], [place], pneumonia, PE, COPD, DKA, ARF, appy, cholecystitis, CVA, Diverticulitis, Homicidal, Suicidal, threat to staff... and all critical care pts) @ -Yes Disposition Clinical Impression: Orbital cellulitis on left, Hypopyon of left eye Disposition: OTHER INSTITUTION NOT DEFINED Condition: Stable Referrals: None,Stated [Primary Care Provider] - 1-2 days Time of Disposition: 14:07 - Out of Hospital Transfer - Req. Specs Out of Hospital Transfer - Requested Specifics: Other Non-Acute ([facility] [place]-Dr. Neely)
[2023-12-14] MEDS: PROPARACAINE 0.5% OPHTH DROPS 15 ML BTL LEFT EYE STA (13:06)
[2023-12-14] MEDS: FLUORESCEIN STRIPS 1 MG STRIP LEFT EYE ONE (13:06)
== END 2023-12-14 15:21 | disposition other institution (70) ==
LOC: EC 10:54
DX: H05.012 Cellulitis of left orbit (principal); H20.052 Hypopyon, left eye; F17.200 Nicotine dependence, unspecified, uncomplicated
CPT/HCPCS: 99284

== ENCOUNTER 2024-09-24 22:42 | Inpatient (IN) | payer OTHER, MEDICAID ==
--- NOTE | 2024-09-25 00:53 | ED ---
Psych HPI - General Chief Complaint: Psychiatric Symptoms Stated Complaint: Mental Health Time Seen by Provider: 09/25/24 00:24 Source: patient Mode of arrival: ambulatory - History of Present Illness Initial Comments: 38-year-old male presenting with chief complaint of suicidal ideation. Patient reports that he recently got out of care home and he is having a lot of stress. States that he has been having thoughts of wanting to harm himself for 3 weeks. He has no plan to harm himself. No homicidal ideation. He is having no physical complaints today. He does report that he does have a support system of a few close friends who encouraged him to come to the ER today - Related Data Previous Rx's Medication Instructions Recorded ARIPiprazole [Abilify] 5 mg PO DAILY 30 Days #30 tab 09/29/24 Doxepin [SINEquan] 25 mg PO HS 30 Days #30 cap 09/29/24 Nicotine 14Mg/24Hr Patch [Habitrol] 1 patch TRANSDERM DAILY 14 Days 09/29/24 #14 patch Sertraline [Zoloft] 100 mg PO DAILY 30 Days #30 tab 09/29/24 hydrOXYzine pamoate [Vistaril] 50 mg PO DAILY PRN 30 Days #60 cap 09/29/24 Allergies Allergy/AdvReac Type Severity Reaction Status Date / Time No Known Allergies Allergy Verified 10/01/24 02:09 Review of Systems ROS Statement: Those systems with pertinent positive or pertinent negative responses have been documented in the HPI. ROS Other: All systems not noted in ROS Statement are negative. Past Medical History Past Medical History: No Reported History History of Any Multi-Drug Resistant Organisms: None Reported Past Surgical History: No Surgical Hx Reported Past Psychological History: Bipolar, Depression, Schizophrenia Smoking Status: Current every day smoker, Vaper Past Alcohol Use History: None Reported Past Drug Use History: Cocaine, Marijuana General Exam Limitations: no limitations General appearance: alert, in no apparent distress Head exam: Present: atraumatic, normocephalic, normal inspection Eye exam: Present: normal appearance, EOMI Neck exam: Present: normal inspection. Absent: meningismus Respiratory exam: Absent: respiratory distress Neurological exam: Present: alert, oriented X3 Psychiatric exam: Present: normal affect, normal mood Skin exam: Present: warm, dry, normal color Course Vital Signs 09/24/24 09/25/24 22:49 01:18 Temperature 99 F 98.4 F Pulse Rate 110 H 93 Respiratory 20 18 Rate Blood Pressure 109/66 100/63 O2 Sat by Pulse 100 98 Oximetry Medical Decision Making - Medical Decision Making Was pt. sent in by a medical professional or institution (, [facility], [facility], urgent care, hospital, or custodial...) When possible be specific @ -No Did you speak to anyone other than the patient for history (EMS, parent, family, police, friend...)? What history was obtained from this source @ -No Did you review nursing and triage notes (agree or disagree)? Why? @ -I reviewed and agree with nursing and triage notes Were old charts reviewed (outside hosp., previous admission, EMS record, old EKG, old radiological studies, urgent care reports/EKG's, custodial records)? Report findings @ -No old charts were reviewed Differential Diagnosis (chest pain, altered mental status, abdominal pain women, abdominal pain men, vaginal bleeding, weakness, fever, dyspnea, syncope, headache, dizziness, GI bleed, back pain, seizure, CVA, palpatations, mental health, musculoskeletal)? @ -Differential Mental Health Depression, anxiety, bipolar, psychosis, schizophrenia, borderline personality, situational depression, adjustment disorder, behavioral disorder, brain tumor, malingering, substance abuse, encephalopathy, medication reaction, dementia, hypothyroidism, degenerative neurologic disorder, lupus.... This is not meant to be all-inclusive list EKG interpreted by me (3pts min.). @ -As above X-rays interpreted by me (1pt min.). @ -None done CT interpreted by me (1pt min.). @ -None done U/S interpreted by me (1pt. min.). @ -None done What testing was considered but not performed or refused? (CT, X-rays, U/S, labs)? Why? @ -None What meds were considered but not given or refused? Why? @ -None Did you discuss the management of the patient with other professionals (professionals i.e. , [facility], [facility], lab, RT, psych nurse, social welfare research worker, is support analyst, teacher, information systems security officer, patient case coordinator)? Give summary @ -Spoke with EPS nurse who recommends admission Was smoking cessation discussed for >3mins.? @ -No Was critical care preformed (if so, how long)? @ -No Were there social determinants of health that impacted care today? How? (Homelessness, low income, unemployed, alcoholism, drug addiction, transportation, low edu. Level, literacy, decrease access to med. care, care home, rehab)? @ -No Was there de-escalation of care discussed even if they declined (Discuss DNR or withdrawal of care, Hospice)? DNR status @ -No What co-morbidities impacted this encounter? (DM, HTN, Smoking, COPD, CAD, Cancer, CVA, ARF, Chemo, Hep., AIDS, mental health diagnosis, sleep apnea, morbid obesity)? @ -None Was patient admitted / discharged? Hospital course, mention meds given and route, prescriptions, significant lab abnormalities, going to OR and other pertinent info. @ -38-year-old male presenting for mental health evaluation. Patient is having suicidal ideation. History and physical examination are conducted. Patient is medically cleared. Patient is evaluated by EPS and inpatient management is recommended. Patient is admitted. My attending is Dr. Guallpa Undiagnosed new problem with uncertain prognosis? @ -No Drug Therapy requiring intensive monitoring for toxicity (Heparin, Nitro, Insulin, Cardizem)? @ -No Were any procedures done? @ -No Diagnosis/symptom? @ -Suicidal ideation Acute, or Chronic, or Acute on Chronic? @ -Acute Uncomplicated (without systemic symptoms) or Complicated (systemic symptoms)? @ -Complicated Side effects of treatment? @ -No Exacerbation, Progression, or Severe Exacerbation? @ -No Poses a threat to life or bodily function? How? (Chest pain, USA, AR, pneumonia, PE, COPD, DKA, ARF, appy, cholecystitis, CVA, Diverticulitis, Homicidal, Suicidal, threat to staff... and all critical care pts) @ -Yes - Lab Data Result diagrams: 09/26/24 12:40 09/26/24 12:40 Lab Results 09/25/24 09/25/24 09/25/24 Range/Units 02:36 02:36 02:36 Urine Color Colorless Urine Appearance Clear (Clear) Urine pH 6.5 (5.0-8.0) Ur Specific [place] 1.002 (1.001-1.035) Urine Protein Negative (Negative) Urine Glucose (UA) Negative (Negative) Urine Ketones Negative (Negative) Urine Blood Negative (Negative) Urine Nitrite Negative (Negative) Urine Bilirubin Negative (Negative) Urine Urobilinogen <2.0 (<2.0) mg/dL Ur Leukocyte Esterase Negative (Negative) Urine Opiates Screen Not Detected (NotDetected) Ur Oxycodone Screen Not Detected (NotDetected) Urine Methadone Screen Not Detected (NotDetected) Ur Barbiturates Screen Not Detected (NotDetected) U Tricyclic Antidepress Not Detected (NotDetected) Ur Phencyclidine Scrn Not Detected (NotDetected) Ur Amphetamines Screen Not Detected (NotDetected) U Methamphetamines Scrn Not Detected (NotDetected) U Benzodiazepines Scrn Not Detected (NotDetected) Urine Cocaine Screen Detected H (NotDetected) U Marijuana (THC) Screen Detected H (NotDetected) SARS-CoV-2 (PCR) Not Detected (Not Detectd) Disposition Clinical Impression: Suicidal ideation Disposition: ADMITTED IP TO THIS HOSP Condition: Stable Time of Disposition: 02:37
[2024-09-25 04:06] LABS: Amphetamine Screen,Urine Not Detected (NotDetected); Barbiturate Screen,Urine Not Detected (NotDetected); Benzodiazepines Screen,Urine Not Detected (NotDetected); Cocaine Screen,Urine Detected (NotDetected); Methadone Screen, Urine Not Detected (NotDetected); Opiate Screen,Urine Not Detected (NotDetected); Oxycodone Screen, Urine Not Detected (NotDetected); Phencyclidine Screen,Urine Not Detected (NotDetected); Tricyclic Antidepressant,Urine Not Detected (NotDetected); Urn Cannabinoid Scrn Detected (NotDetected)
[2024-09-25] MEDS ORDERED: HALOPERIDOL LACTATE 5 MG/ML 1 ML VIAL IM PRN (05:15)
[2024-09-25] MEDS ORDERED: MAG HYDROX/AL HYDROX/SIMETH 355 ML BOTTLE PO PRN (05:15)
[2024-09-25] MEDS ORDERED: MAGNESIUM HYDROXIDE 2,400 MG/30 ML CUP PO PRN (05:15)
[2024-09-25] MEDS ORDERED: ACETAMINOPHEN TAB 325 MG TAB PO PRN (05:15)
[2024-09-25] MEDS ORDERED: LORazepam 2 MG/ML INJ IM PRN (05:15)
[2024-09-25] MEDS ORDERED: haloperidoL 5 MG TAB PO PRN (05:15)
[2024-09-25] MEDS ORDERED: IBUPROFEN 600 MG TAB PO PRN (05:15)
[2024-09-25 08:24] LABS: Appearance,Urine Clear (Clear); Bilirubin,Urine Negative (Negative); Blood,Urine Negative (Negative); Color,Urine Colorless; Glucose,Urine (UA) Negative (Negative); Ketones,Urine Negative (Negative); Leukocyte Esterase,Urine Negative (Negative); Nitrite,Urine Negative (Negative); PH, Urine 6.5 (5.0-8.0); Protein,Urine Negative (Negative); Specific Gravity,Urine 1.002 (1.001-1.035); Urobilinogen,Urine <2.0 mg/dL (<2.0)
[2024-09-25] MEDS: NICOTINE 14MG/24HR PATCH TRANSDERM SCH (09:56)
--- NOTE | 2024-09-25 14:25 | P.HP ---
Psychiatric H&P - . H&P Date: 09/25/24 History & Physical: Allergies Allergy/AdvReac Type Severity Reaction Status Date / Time No Known Allergies Allergy Verified 12/14/23 11:11 Vital Signs Temp 97.9 F 09/25/24 10:23 Pulse 92 09/25/24 10:23 Resp 14 09/25/24 10:23 BP 115/76 09/25/24 10:23 Pulse Ox 98 09/25/24 06:11 FiO2 Intake & Output 09/24/24 09/25/24 09/25/24 18:59 06:59 18:59 Weight 98.9 kg Laboratory Last Values Urine Color Colorless 09/25/24 02:36 Urine Appearance Clear (Clear) 09/25/24 02:36 Urine pH 6.5 (5.0-8.0) 09/25/24 02:36 Ur Specific [place] 1.002 (1.001-1.035) 09/25/24 02:36 Urine Protein Negative (Negative) 09/25/24 02:36 Urine Glucose (UA) Negative (Negative) 09/25/24 02:36 Urine Ketones Negative (Negative) 09/25/24 02:36 Urine Blood Negative (Negative) 09/25/24 02:36 Urine Nitrite Negative (Negative) 09/25/24 02:36 Urine Bilirubin Negative (Negative) 09/25/24 02:36 Urine Urobilinogen <2.0 mg/dL (<2.0) 09/25/24 02:36 Ur Leukocyte Esterase Negative (Negative) 09/25/24 02:36 Urine Opiates Screen Not Detected (NotDetected) 09/25/24 02:36 Ur Oxycodone Screen Not Detected (NotDetected) 09/25/24 02:36 Urine Methadone Screen Not Detected (NotDetected) 09/25/24 02:36 Ur Barbiturates Screen Not Detected (NotDetected) 09/25/24 02:36 U Tricyclic Antidepress Not Detected (NotDetected) 09/25/24 02:36 Ur Phencyclidine Scrn Not Detected (NotDetected) 09/25/24 02:36 Ur Amphetamines Screen Not Detected (NotDetected) 09/25/24 02:36 U Methamphetamines Scrn Not Detected (NotDetected) 09/25/24 02:36 U Benzodiazepines Scrn Not Detected (NotDetected) 09/25/24 02:36 Urine Cocaine Screen Detected (NotDetected) H 09/25/24 02:36 U Marijuana (THC) Screen Detected (NotDetected) H 09/25/24 02:36 SARS-CoV-2 (PCR) Not Detected (Not Detectd) 09/25/24 02:36 09/25/24 14:07 IDENTIFYING DATA: Patient is a 38-year-old male. Single, has 5 children, currently homeless, unemployed HPI: Patient presented to the hospital yesterday for psychiatric evaluation. Patient apparently was endorsing suicidal ideations, depression. Patient was last admitted to the mental health unit in September 2023. Patient was seen and agreeable to speak to telegraphic typewriter installer today in the office. Patient appeared to have somewhat poor eye contact, appeared to be depressed. States that he was recently released from shelter in late August. Claims that he is finding it difficult to be homeless, has been feeling more depressed lately. He states that he was in [facility] shelter in [place] and was flown back to [place]. States that he claims that he "lost everything" and states that "I have nothing anymore" after going to shelter. He was feeling hopeless claims that he is feeling like "giving up". He states that he has been having a lot of "negative self talk" and his friends and family told him to come to the hospital. At this time patient denies any auditory or visual hallucinations. States that he is still having suicidal thoughts no specific plan, denies any homicidal ideations. Patient denies any flight of ideas racing thoughts and increased in goal directed behavior. Patient admits to using nicotine products, smokes marijuana and also claims that he uses cocaine however was guarded about it. PAST PSYCHIATRIC HISTORY: Patient was last admitted to the mental health unit in September 2023. He does not follow up with anyone. States he is on visteral, Remeron, and abilify and was on Zoloft in the past. Attempted suicide when he was 12 by hanging. PMH:As per ER note ALLERGIES: as per EMR CHEMICAL DEPENDENCY HISTORY: as per HPI FAMILY PSYCHIATRIC/SUBSTANCE USE HISTORY: mother has depression SOCIAL HISTORY: Patient was born and raised in [place] Graduated high school. He used to work as a cook. homeless currently. Was in [facility], for violation. His initial charge was possession of a firearm, in 2020. He was just released from federal shelter in late August. MENTAL STATUS EXAM: General Appearance: Patient appears to be well-built, several tattoos, stated age is alert, directable, and attempts to cooperate. Patient appears to have fair hygiene and grooming. Wearing a hospital gown Behavior: Patient is seated without any agitated behavior. Attempts to cooperate. Speech: Patient's speech is fluent and nonpressured. Soft tone, guarded at times Mood/Affect: Patient reports their mood is hopeless and depressed, affect is congruent and constricted. Suicidality/Homicidality: Patient denies having any homicidal ideation intent or plan. Admits to having suicidal ideations, no specific intent or plan Perceptions: Patient denies any visual hallucinations [and denies any auditory hallucinations Though content/process: There is no evidence of any delusional thought content and thought process is linear and goal-directed. Focused on his stressors Memory and concentration: AOX3, grossly intact for the purposes of this session. Can spell "WORLD" backward Judgment and insight: poor STRENGTHS/WEAKNESSES: strength is that patient is resilient. Weakness is that patient has poor judgment and is impulsive and is currently homeless INTELLECT: average IMPRESSIONS: bipolar disorder, depressed episode cocaine use disorder Cannabis use disorder nicotine dependance Homelessness PLAN: -Patient is admitted under voluntary status to MHU for stabilization of psychiatric symptoms and safety. Patient has signed adult voluntary form and medication consent and is placed in patient's chart. -Medications : Abilify 5mg daily for mood stabilization, Zoloft 50 daily mood/anxiety Doxepin 25 mg qhs for sleep, vistaril 50 mg prn for anxiety. -Ativan and Haldol PRN for agitation/aggression -Patient was informed of the risks, benefits and side effects of the medication and patient verbally consented to taking the medications. -Internal Medicine consult to perform medical evaluation and physical. -NRT - nicotine patch -SW on board for discharge planning. Encourage patient to participate in groups to work on coping skills. patient will think/consider rehab. he is homeless at this time. 09/25/24 14:13 09/25/24 14:18
[2024-09-25] MEDS: ARIPiprazole 5 MG TAB PO SCH (14:40)
[2024-09-25] MEDS: SERTRALINE 50 MG TAB PO SCH (14:40)
[2024-09-25] MEDS: DOXEPIN 25 MG CAP PO SCH (21:17)
--- NOTE | 2024-09-26 04:22 | P.CONS ---
History of Present Illness - Reason for Consult Consult date: 09/26/24 - History of Present Illness The patient is a 38-year-old male with no known PMH was presented to the emergency room with complaints of depression and suicidal ideation. The patient was admitted to the mental health unit where he was seen and evaluated. Patient notes that he had recently gotten [facility] pen[facility] and was having a hard time managing everything including time with his children and getting a place to stay. He denied any physical complaints at the time of interview. Denied experiencing chest discomfort, shortness of breath, fever, chills, cough, nausea, vomiting, abdominal pain, diarrhea. Patient does report smoking a third of a pack of cigarettes daily as well as recreational marijuana use. Patient also admits to a single episode of cocaine use a few days ago. Review of systems: Pertinent positives and negatives as discussed in HPI, a complete review of systems was performed and all other systems are negative. Physical examination: General: non toxic, no distress, appears at stated age, obese Derm: no unusual rashes/lesions, no unusual ecchymoses, warm, dry Head: atraumatic, normocephalic, symmetric Eyes: EOMI, no lid lag, anicteric sclera ENT: Nose and ears atraumatic, no thrush, no pharyngeal erythema Neck: trachea midline, supple Mouth: no lip lesion, mucus membranes moist Cardiovascular: S1S2 reg, no murmur, no edema Lungs: CTA bilateral, no rhonchi, no rales , no accessory muscle use Abdominal: soft, nontender to palpation, no guarding Ext: no gross muscle atrophy, no contractures, Neuro: No gross focal neuro deficits noted Psych: Alert, oriented, appropriate affect Assessment: Polysubstance abuse Tobacco abuse Depression and suicidal ideation Imaging: Mental Data Review: Formed reviewed with urine toxicology positive for cocaine and marijuana Plan: Advised on the importance of cessation from substance use Defer management of depression and suicidal ideation to the primary psychiatry service Thank you for allowing us to participate in the care of this patient. We will follow peripherally. Do not hesitate to contact us with questions. Someone can be reached from the [facility] hospitalist group at all hours of the day at [phone]. Past Medical History Past Medical History: No Reported History History of Any Multi-Drug Resistant Organisms: None Reported Past Surgical History: No Surgical Hx Reported Smoking Status: Current every day smoker, Vaper Medications and Allergies Home Medications Medication Instructions Recorded Confirmed Type ARIPiprazole [Abilify] 5 mg PO DAILY 30 Days #30 tab 10/24/23 Rx Doxepin [SINEquan] 25 mg PO HS 30 Days #30 cap 10/24/23 Rx Nicotine 14Mg/24Hr Patch [Habitrol] 1 patch TRANSDERM DAILY 14 Days 10/24/23 Rx #14 patch Sertraline [Zoloft] 100 mg PO DAILY 30 Days #30 tab 10/24/23 Rx hydrOXYzine pamoate [Vistaril] 50 mg PO DAILY PRN 30 Days #60 cap 10/24/23 Rx Allergies Allergy/AdvReac Type Severity Reaction Status Date / Time No Known Allergies Allergy Verified 12/14/23 11:11 Physical Exam Vitals: Vital Signs Temp Pulse Pulse Resp BP Pulse Ox 09/25/24 21:15 96.9 F L 76 16 118/83 97 09/25/24 10:23 97.9 F 92 14 115/76 09/25/24 06:11 98.1 F 78 12 103/56 98
--- NOTE | 2024-09-26 10:44 | P.PN ---
Progress Note - Text Progress Note Date: 09/26/24 Interval history: Patient was seen laying in bed and was directable and agreeable to speak with appeals writer. He reports some sleep difficulties overnight however expressed no further concerns. He does report suicidal ideations however stated that he has been actively trying to reframe his mind from aligning with these thoughts, denying any plan or intent at this time. At this time patient denies any homicidal ideations intent or plan. Denies any auditory or visual hallucinations. He also denies any paranoia. Patient denies any side effects from the medications and has been compliant with meds. Mental status exam: General Appearance: Patient appears to be stated age is alert, directable, and cooperative. Behavior: No agitated behavior. Patient is calm and directable. He is laying in bed Speech: Patient's speech is fluent and nonpressured. Mood/Affect: Mood is improving mildly, affect is congruent and constricted. Suicidality/Homicidality: Patient denies having any homicidal ideation intent or plan. He reports suicidal ideations, lessening in intensity with no plans or intent Perceptions: Patient denies any auditory or visual hallucinations. Though content/process: There is no evidence of any delusional thought content and thought process is linear and logical. Memory and concentration: AOX3, grossly intact for the purposes of this session Judgment and insight: improving mildly Assessment/Plan: Continue with current diagnosis. Patient continues to meet criteria for inpatient psychiatric admission for symptom stabilization and safety. Patient will be maintained on current psychotropic medication regimen. Monitor for medication compliance and for any psychotropic medication side effects. Will continue to monitor ongoing response to treatment. Encouraged participation in milieu.
[2024-09-26 13:10] LABS: Basophils % (A) 0 %; Eosinophils # (A) 0.2 k/uL (0-0.7); Eosinophils % (A) 2 %; HCT 44.2 % (39.0-53.0); HGB 13.9 gm/dL (13.0-17.5); Lymphocytes # (A) 3.5 k/uL (1.0-4.8); Lymphocytes % (A) 41 %; MCH 28.4 pg (25.0-35.0); MCHC 31.5 g/dL (31.0-37.0); Mean Platelet Volume 8.1; Monocytes # (A) 0.5 k/uL (0-1.0); Monocytes % (A) 5 %; Neutrophils # (A) 4.2 k/uL (1.3-7.7); Neutrophils % (A) 49 %; Platelet Count 337 k/uL (150-450); RBC 4.91 m/uL (4.30-5.90); RDW 13.7 % (11.5-15.5); WBC 8.5 k/uL (3.8-10.6)
[2024-09-26 13:22] LABS: ALT 28 U/L (4-49); African American GFR (CKD) >90 (>60 ml/min/1.73 sqM); Albumin 4.2 g/dL (3.5-5.0); Anion Gap 8 mmol/L; Blood Urea Nitrogen 17 mg/dL (9-20); Calcium 9.3 mg/dL (8.4-10.2); Carbon Dioxide 25 mmol/L (22-30); Chloride 101 mmol/L (98-107); Glucose 92 mg/dL (74-99); Non-African American GFR(CKD) >90 (>60 ml/min/1.73 sqM); Sodium 134 mmol/L (137-145); Total Bilirubin 1.3 mg/dL (0.2-1.3); Total Protein 7.6 g/dL (6.3-8.2)
[2024-09-26 13:26] LABS: AST 30 U/L (17-59); Alkaline Phosphatase 70 U/L (38-126); Potassium 4.8 mmol/L (3.5-5.1)
[2024-09-27] MEDS: SERTRALINE 100 MG TAB PO SCH (08:21)
[2024-09-27 09:36] LABS: Chol/HDL Ratio 2.72 Ratio; LDL Cholesterol,Calculated 103.7 mg/dL (0.0-131.0)
--- NOTE | 2024-09-27 10:27 | P.PN ---
Progress Note - Text Progress Note Date: 09/27/24 Interval history: Patient was seen laying in bed and was directable and agreeable to speak with personal lines underwriter. Patient states speaking to his aunt yesterday which caused him to feel better. Patient is motivated to get back on track since being released from intermediate as he reports difficulties assimilating back to society. He reports sleeping and eating well. He was future oriented today. At this time patient denies any suicidal or homicidal ideations intent or plan. Denies any auditory or visual hallucinations. Patient denies any side effects from the medications and has been compliant with meds. Mental status exam: General Appearance: Patient appears to be stated age is alert, directable, and cooperative. Behavior: No agitated behavior. Patient is calm and directable Speech: Patient's speech is fluent and nonpressured. Mood/Affect: Mood is improving mildly, affect is congruent and constricted. Suicidality/Homicidality: Patient denies having any suicidal or homicidal ideation intent or plan. Perceptions: Patient denies any auditory or visual hallucinations. Though content/process: There is no evidence of any delusional thought content and thought process is linear and goal-directed. Memory and concentration: AOX3, grossly intact for the purposes of this session Judgment and insight: improving mildly Assessment/Plan: Continue with current diagnosis. Patient continues to meet criteria for inpatient psychiatric admission for symptom stabilization and safety. Patient will be maintained on current psychotropic medication regimen. Monitor for medication compliance and for any psychotropic medication side effects. Will continue to monitor ongoing response to treatment. Encouraged participation in milieu.
[2024-09-27] MEDS: hydrOXYzine pamoate 25 MG CAP PO PRN (14:37)
[2024-09-27] MEDS: LORazepam 1 MG TAB PO PRN (20:55)
--- NOTE | 2024-09-28 11:04 | P.PN ---
Progress Note - Text Progress Note Date: 09/28/24 Interval history: Patient was seen today wandering the hallways and was directable and agreeable to speak with manual writer. Patient states that he feels a bit better today, claims that his mood and anxiety been improving. States that he does not feel he wants to go to rehab at this time, claims that he would rather go to stay with his mother near [place]. Claims that he has had improvement in his anxiety, sleep has been mildly improving since yesterday. Has been taking his medications not reporting any side effects at this time. Has been eating well. Try to go to some groups. At this time patient denies any suicidal or homicidal ideations intent or plan. Denies any auditory or visual hallucinations. Patient denies any side effects from the medications and has been compliant with meds. Mental status exam: General Appearance: Patient appears to be stated age is alert, directable, and cooperative. Behavior: No agitated behavior. Patient is calm and directable Speech: Patient's speech is fluent and nonpressured. Mood/Affect: Mood is improving mildly, affect is congruent and constricted. Suicidality/Homicidality: Patient denies having any suicidal or homicidal ideation intent or plan. Perceptions: Patient denies any auditory or visual hallucinations. Though content/process: There is no evidence of any delusional thought content and thought process is linear and goal-directed. more future oriented, minimizing drug use. Memory and concentration: AOX3, grossly intact for the purposes of this session Judgment and insight: improving mildly Assessment/Plan: Continue with current diagnosis. Patient continues to meet criteria for inpatient psychiatric admission for symptom stabilization and safety. Patient will be maintained on current psychotropic medication regimen. Monitor for medication compliance and for any psychotropic medication side effects. Will continue to monitor ongoing response to treatment. Encouraged participation in milieu. Likely discharge tomorrow to his mother's house, he is declining rehab at this time.
[2024-09-28 20:57] VITALS: RESP 16
[2024-09-29 08:18] VITALS: BP 118/85; PULSE 80; TEMP 97.3
--- NOTE | 2024-09-29 10:27 | P.DS ---
Providers Date of admission: 09/25/24 05:13 Expected date of discharge: 09/29/24 Attending physician: Souleymane Barger MD Consults: 09/25/24 05:15 Consult Physician Routine Consulting Provider: Bradley Physician Consult Reason/Comments: H & P Do you want consulting provider notified?: Already Contacted Primary care physician: Stated None - Discharge Diagnosis(es) (1) Bipolar disorder current episode depressed Current Visit: Yes Status: Acute Priority: High (2) Cocaine use disorder Current Visit: Yes Status: Acute Priority: High (3) Cannabis use disorder Current Visit: Yes Status: Acute Priority: Medium (4) Nicotine dependence Current Visit: Yes Status: Acute Priority: Low (5) Homelessness Current Visit: Yes Status: Acute Priority: High Hospital Course: Admission HPI: Admission note was completed by conventional underwriter "Patient is a 38-year-old male. Single, has 5 children, currently homeless, unemployed. Patient presented to the hospital yesterday for psychiatric evaluation. Patient apparently was endorsing suicidal ideations, depression. Patient was last admitted to the mental health unit in September 2023. Patient was seen and agreeable to speak to conventional underwriter today in the office. Patient appeared to have somewhat poor eye contact, appeared to be depressed. States that he was recently released from assisted in late August. Claims that he is finding it difficult to be homeless, has been feeling more depressed lately. He states that he was in federal assisted in [place] and was flown back to [place]. States that he claims that he "lost everything" and states that "I have nothing anymore" after going to assisted. He was feeling hopeless claims that he is feeling like "giving up". He states that he has been having a lot of "negative self talk" and his friends and family told him to come to the hospital. At this time patient denies any auditory or visual hallucinat ions. States that he is still having suicidal thoughts no specific plan, denies any homicidal ideations. Patient denies any flight of ideas racing thoughts and increased in goal directed behavior. Patient admits to using nicotine products, smokes marijuana and also claims that he uses cocaine however was guarded about it." Hospital course: Upon admission to the unit patient was directable and agreeable to commence treatment and signed adult voluntary form. Patient was initially depressed, anxious however with time and treatment patient got along well with other patients on the unit and followed unit protocol. Patient was compliant with the medications and denied any side effects throughout hospital course. Patient was started on Abilify 5 mg daily for mood stabilization, Zoloft increased to 100 mg daily for mood/anxiety, Sinequan increased to 25 mg nightly for sleep/mood, Vistaril as needed for anxiety. Patient spoke of his stressors and engaged in therapy both group/activity therapy. Patient was also seen by medical team for history and physical exam. Throughout the course of the hospitalization patient gradually improved with regards to mood, anxiety, suicidal thoughts, sleep and returned back to their baseline level of functioning. On the day of discharge patient denied any suicidal or homicidal ideations intent or plan denied any auditory or visual hallucinations. Patient endorsed wanting to live for their health and family. The patient denied any access to guns or weapons. Patient denied any paranoia and did not endorse any delusions. Patient does have a significant history of substance abuse and was counseled on abstaining from all substances including alcohol and marijuana. Patient elected to do outpatient substance use treatment program through their outpatient provider. Patient states that he is not willing to go to rehab at this time however will consider in the future.. Patient was also counseled on the medications and need for regular compliance and was encouraged to follow-up with their outpatient appointment for mental health and also for primary care. Patient claims that he wants to go stay with a friend locally, will be following up at [facility]. Mental status exam: General Appearance: Patient appears to be well-built, several tattoos, stated age is alert, pleasant, and cooperative. Patient is in no acute distress and has improved hygiene and grooming Behavior: Patient is calmly seated without any agitated behavior. Speech: Patient's speech is fluent and nonpressured. Mood/Affect: Patient reports their mood is "good", affect is congruent and euthymic. Suicidality/Homicidality: Patient denies having any suicidal or homicidal ideation intent or plan. Perceptions: Patient denies any auditory or visual hallucinations. Though content/process: There is no evidence of any delusional thought content and thought process is linear and goal-directed. More future oriented Memory and concentration: AOX3, grossly intact for the purposes of this session. Can spell "WORLD" backwards correctly. Judgment and insight: Chronically poor, however has improved with guarded prognosis Impression: Bipolar disorder current episode depressed Cocaine use disorder Cannabis use disorder Homelessness Nicotine dependence Plan: -Continue with discharge today as patient has improved and stabilized psychiatrically and is not currently an imminent threat to themself and/or others. Patient will remain at chronically elevated risk for harm to self and/or others due to their impulsivity and substance abuse. -Continue medications: Sinequan 25 mg nightly for sleep/mood, Vistaril 50 mg daily as needed for anxiety, Abilify 5 mg daily for mood stabilization, Zoloft 100 mg daily for mood/anxiety. -Patient was counseled on the need for medication compliance and appropriate follow-up at mental health and also primary care for medical issues. Patient verbalized understanding and agreed. -Social work to help coordinate patients discharge today as he will be discharged to his friend's house. also to ensure safe home environment that guns/weapons are either removed from the home or locked away. Social work also to arrange for patients follow up appointments with [facility] for psychiatric care along with follow up with primary care provider. -Patient counseled on abstaining from recreational drugs and marijuana and alcohol. Was informed/educated on the adverse effects on their physical and mental health. Patient verbally agreed and understood. Patient was offered substance abuse treatment however declined at this time. He claims that he will consider rehab in the future. -Patient was instructed to return to the hospital or seek immediate medical care if their psychiatric or medical symptoms do worsen or reoccur. Allergies Allergy/AdvReac Type Severity Reaction Status Date / Time No Known Allergies Allergy Verified 12/14/23 11:11 Laboratory Results WBC 8.5 k/uL (3.8-10.6) 09/26/24 12:40 RBC 4.91 m/uL (4.30-5.90) 09/26/24 12:40 Hgb 13.9 gm/dL (13.0-17.5) 09/26/24 12:40 Hct 44.2 % (39.0-53.0) 09/26/24 12:40 MCV 90.0 fL (80.0-100.0) 09/26/24 12:40 MCH 28.4 pg (25.0-35.0) 09/26/24 12:40 MCHC 31.5 g/dL (31.0-37.0) 09/26/24 12:40 RDW 13.7 % (11.5-15.5) 09/26/24 12:40 Plt Count 337 k/uL (150-450) 09/26/24 12:40 MPV 8.1 09/26/24 12:40 Neutrophils % 49 % 09/26/24 12:40 Lymphocytes % 41 % 09/26/24 12:40 Monocytes % 5 % 09/26/24 12:40 Eosinophils % 2 % 09/26/24 12:40 Basophils % 0 % 09/26/24 12:40 Neutrophils # 4.2 k/uL (1.3-7.7) 09/26/24 12:40 Lymphocytes # 3.5 k/uL (1.0-4.8) 09/26/24 12:40 Monocytes # 0.5 k/uL (0-1.0) 09/26/24 12:40 Eosinophils # 0.2 k/uL (0-0.7) 09/26/24 12:40 Basophils # 0.0 k/uL (0-0.2) 09/26/24 12:40 Sodium 134 mmol/L (137-145) L 09/26/24 12:40 Potassium 4.8 mmol/L (3.5-5.1) 09/26/24 12:40 Chloride 101 mmol/L (98-107) 09/26/24 12:40 Carbon Dioxide 25 mmol/L (22-30) 09/26/24 12:40 Anion Gap 8 mmol/L 09/26/24 12:40 BUN 17 mg/dL (9-20) 09/26/24 12:40 Creatinine 0.80 mg/dL (0.66-1.25) 09/26/24 12:40 Est GFR (CKD-EPI)AfAm >90 (>60 ml/min/1.73 sqM) 09/26/24 12:40 Est GFR (CKD-EPI)NonAf >90 (>60 ml/min/1.73 sqM) 09/26/24 12:40 Glucose 92 mg/dL (74-99) 09/26/24 12:[address] Glu mg/dL 117 mg/dL 09/26/24 12:40 Hemoglobin A1c 5.7 % (<=6.0) 09/26/24 12:40 Calcium 9.3 mg/dL (8.4-10.2) 09/26/24 12:40 Total Bilirubin 1.3 mg/dL (0.2-1.3) 09/26/24 12:40 AST 30 U/L (17-59) 09/26/24 12:40 ALT 28 U/L (4-49) 09/26/24 12:40 Alkaline Phosphatase 70 U/L (38-126) 09/26/24 12:40 Total Protein 7.6 g/dL (6.3-8.2) 09/26/24 12:40 Albumin 4.2 g/dL (3.5-5.0) 09/26/24 12:40 Triglycerides 108.00 mg/dL (0.00-149.00) 09/26/24 12:40 Cholesterol 198.00 mg/dL (0.00-200.00) 09/26/24 12:40 LDL Cholesterol, Calc 103.7 mg/dL (0.0-131.0) 09/26/24 12:40 VLDL Cholesterol, Calc 21.60 mg/dL (5.00-40.00) 09/26/24 12:40 HDL Cholesterol 72.70 mg/dL (40.00-60.00) H 09/26/24 12:40 Cholesterol/HDL Ratio 2.72 Ratio 09/26/24 12:40 TSH 0.818 mIU/L (0.465-4.680) 09/26/24 12:40 Urine Color Colorless 09/25/24 02:36 Urine Appearance Clear (Clear) 09/25/24 02:36 Urine pH 6.5 (5.0-8.0) 09/25/24 02:36 Ur Specific [place] 1.002 (1.001-1.035) 09/25/24 02:36 Urine Protein Negative (Negative) 09/25/24 02:36 Urine Glucose (UA) Negative (Negative) 09/25/24 02:36 Urine Ketones Negative (Negative) 09/25/24 02:36 Urine Blood Negative (Negative) 09/25/24 02:36 Urine Nitrite Negative (Negative) 09/25/24 02:36 Urine Bilirubin Negative (Negative) 09/25/24 02:36 Urine Urobilinogen <2.0 mg/dL (<2.0) 09/25/24 02:36 Ur Leukocyte Esterase Negative (Negative) 09/25/24 02:36 Urine Opiates Screen Not Detected (NotDetected) 09/25/24 02:36 Ur Oxycodone Screen Not Detected (NotDetected) 09/25/24 02:36 Urine Methadone Screen Not Detected (NotDetected) 09/25/24 02:36 Ur Barbiturates Screen Not Detected (NotDetected) 09/25/24 02:36 U Tricyclic Antidepress Not Detected (NotDetected) 09/25/24 02:36 Ur Phencyclidine Scrn Not Detected (NotDetected) 09/25/24 02:36 Ur Amphetamines Screen Not Detected (NotDetected) 09/25/24 02:36 U Methamphetamines Scrn Not Detected (NotDetected) 09/25/24 02:36 U Benzodiazepines Scrn Not Detected (NotDetected) 09/25/24 02:36 Urine Cocaine Screen Detected (NotDetected) H 09/25/24 02:36 U Marijuana (THC) Screen Detected (NotDetected) H 09/25/24 02:36 SARS-CoV-2 (PCR) Not Detected (Not Detectd) 09/25/24 02:36 Vital Signs Temp 97.3 F L 09/29/24 08:17 Pulse 80 09/29/24 08:17 Resp 16 09/28/24 20:56 BP 118/85 09/29/24 08:17 Pulse Ox 99 09/29/24 08:17 FiO2 Patient Condition at Discharge: Stable Plan - Discharge Summary Discharge Rx Participant: Yes New Discharge Prescriptions: New Nicotine 14Mg/24Hr Patch [Habitrol] 1 patch TRANSDERM DAILY 14 Days #14 patch hydrOXYzine pamoate [Vistaril] 50 mg PO DAILY PRN 30 Days #60 cap PRN Reason: Anxiety Continue ARIPiprazole [Abilify] 5 mg PO DAILY 30 Days #30 tab Doxepin [SINEquan] 25 mg PO HS 30 Days #30 cap Sertraline [Zoloft] 100 mg PO DAILY 30 Days #30 tab Discontinued hydrOXYzine pamoate [Vistaril] 50 mg PO DAILY PRN 30 Days #60 cap PRN Reason: Anxiety Nicotine 14Mg/24Hr Patch [Habitrol] 1 patch TRANSDERM DAILY 14 Days #14 patch Discharge Medication List ARIPiprazole [Abilify] 5 mg PO DAILY 30 Days #30 tab 09/29/24 [Rx] Doxepin [SINEquan] 25 mg PO HS 30 Days #30 cap 09/29/24 [Rx] Nicotine 14Mg/24Hr Patch [Habitrol] 1 patch TRANSDERM DAILY 14 Days #14 patch 09/29/24 [Rx] Sertraline [Zoloft] 100 mg PO DAILY 30 Days #30 tab 09/29/24 [Rx] hydrOXYzine pamoate [Vistaril] 50 mg PO DAILY PRN 30 Days #60 cap 09/29/24 [Rx] Follow up Appointment(s)/Referral(s): [facility]Other] - [facility] [Outside] - 09/30/24 3:15 pm (with Zak) Patient Instructions/Handouts: How to Stop Smoking (DC), Bipolar Disorder (DC), Depression (DC) Activity/Diet/Wound Care/Special Instructions: [facility] Discharge Info Avoid the use of street drugs and alcohol. Take all medications as prescribed. When you are in need of refills on your medications, please contact your outpatient medical provider and/or outpatient psychiatrist. Please go to your scheduled outpatient appointments for aftercare treatment. If symptoms return or become worse, call the crisis line at or and/or visit the nearest emergency room for assistance. National Suicide and Crisis Lifeline - call or text 988 Discharge Disposition: HOME SELF-CARE
== END 2024-09-29 11:48 | disposition home or self-care (01) | DRG 885 ==
LOC: EC 22:42 → 3MHU 09-25 05:13
PROVIDERS: ADMIT Psychiatry & Neurology Psychiatry; ATTEND Psychiatry & Neurology Psychiatry
DX: F31.30 Bipolar disorder, current episode depressed, mild or moderate severity, unspecified (principal); Z59.00 Homelessness unspecified; R45.851 Suicidal ideations; F12.10 Cannabis abuse, uncomplicated; F14.10 Cocaine abuse, uncomplicated; F19.10 Other psychoactive substance abuse, uncomplicated; F17.210 Nicotine dependence, cigarettes, uncomplicated; Z79.899 Other long term (current) drug therapy; Z56.0 Unemployment, unspecified; Z81.8 Family history of other mental and behavioral disorders
CPT/HCPCS: 80053; 80061; 80306; 81003; 82075; 83036; 84443; 85025; 87635; 99285

== ENCOUNTER 2024-10-01 02:04 | Emergency (ER) | payer MEDICAID, OTHER ==
--- NOTE | 2024-10-01 02:30 | ED ---
Extremity Problem HPI - General Chief complaint: Extremity Problem,Nontraumatic Stated complaint: rt leg pain Time Seen by Provider: 10/01/24 02:09 Source: patient, RN notes reviewed Mode of arrival: ambulatory Limitations: no limitations - History of Present Illness Initial comments: 38-year-old male with no reported medical history presented emergency room for complaint of nontraumatic right ankle pain. Patient states that he has been walking quite a bit lately and began to experience pain to the medial part of his ankle. He denies recent falls, injuries or twisting of the ankle. Patient is able to bear weight. Denies previous surgeries to the ankle. Denies calf pain or swelling, difficulty breathing, heart palpitations. Has not taken any medications for the pain. No other acute complaints at this time. - Related Data Previous Rx's Medication Instructions Recorded ARIPiprazole [Abilify] 5 mg PO DAILY 30 Days #30 tab 09/29/24 Doxepin [SINEquan] 25 mg PO HS 30 Days #30 cap 09/29/24 Nicotine 14Mg/24Hr Patch [Habitrol] 1 patch TRANSDERM DAILY 14 Days 09/29/24 #14 patch Sertraline [Zoloft] 100 mg PO DAILY 30 Days #30 tab 09/29/24 hydrOXYzine pamoate [Vistaril] 50 mg PO DAILY PRN 30 Days #60 cap 09/29/24 Allergies Allergy/AdvReac Type Severity Reaction Status Date / Time No Known Allergies Allergy Verified 10/01/24 02:09 Review of Systems ROS Statement: Those systems with pertinent positive or pertinent negative responses have been documented in the HPI. ROS Other: All systems not noted in ROS Statement are negative. Past Medical History Past Medical History: No Reported History History of Any Multi-Drug Resistant Organisms: None Reported Past Surgical History: No Surgical Hx Reported Past Psychological History: Bipolar, Depression, Schizophrenia Smoking Status: Current every day smoker, Vaper Past Alcohol Use History: Occasional Past Drug Use History: Marijuana General Exam Limitations: no limitations General appearance: alert, in no apparent distress Respiratory exam: Present: normal lung sounds bilaterally. Absent: respiratory distress, wheezes, rales, rhonchi, stridor Cardiovascular Exam: Present: regular rate, normal rhythm, normal heart sounds. Absent: systolic murmur, diastolic murmur, rubs, gallop, clicks GI/Abdominal exam: Present: soft, normal bowel sounds. Absent: distended, tenderness, guarding, rebound, rigid Right Ankle exam: Present: full ROM, tenderness (medial). Absent: swelling, ecchymosis, deformity Neurovascular tendon exam: Present: no vascular compromise Back exam: Present: normal inspection Neurological exam: Present: alert, oriented X3, CN II-XII intact Course Vital Signs 10/01/24 10/01/24 02:07 04:20 Temperature 97.2 F L 97.7 F Pulse Rate 100 78 Respiratory 20 18 Rate Blood Pressure 122/80 122/76 O2 Sat by Pulse 98 98 Oximetry Medical Decision Making - Medical Decision Making Was pt. sent in by a medical professional or institution (, PA, AMPLIFIER MECHANIC, urgent care, hospital, or custodial...) When possible be specific @ -No Did you speak to anyone other than the patient for history (EMS, parent, family, police, friend...)? What history was obtained from this source @ -No Did you review nursing and triage notes (agree or disagree)? Why? @ -I reviewed and agree with nursing and triage notes Were old charts reviewed (outside hosp., previous admission, EMS record, old EKG, old radiological studies, urgent care reports/EKG's, custodial records)? Report findings @ -No old charts were reviewed Differential Diagnosis (chest pain, altered mental status, abdominal pain women, abdominal pain men, vaginal bleeding, weakness, fever, dyspnea, syncope, headache, dizziness, GI bleed, back pain, seizure, CVA, palpatations, mental health, musculoskeletal)? @ -Differential Musculoskeletal Muscular strain, contusion, ligament sprain, fracture, arthritis, septic arthritis, bursitis, cellulitis, muscle spasm, nerve compression, DVT, arterial occlusion, herpes zoster, electrolyte abnormality, tumor.... This is not meant to be in all inclusive list EKG interpreted by me (3pts min.). @ -None X-rays interpreted by me (1pt min.). @ -Xray of the right ankle completed with no acute fracture subluxation CT interpreted by me (1pt min.). @ -None done U/S interpreted by me (1pt. min.). @ -None done What testing was considered but not performed or refused? (CT, X-rays, U/S, labs)? Why? @ -None What meds were considered but not given or refused? Why? @ -None Did you discuss the management of the patient with other professionals (professionals i.e. , PA, AMPLIFIER MECHANIC, lab, RT, psych nurse, marriage and family social worker, title insurance examiner, teacher, collections officer, outsole caser)? Give summary @ -No Was smoking cessation discussed for >3mins.? @ -No Was critical care preformed (if so, how long)? @ -No Were there social determinants of health that impacted care today? How? (Homelessness, low income, unemployed, alcoholism, drug addiction, transportation, low edu. Level, literacy, decrease access to med. care, intermediate, rehab)? @ -No Was there de-escalation of care discussed even if they declined (Discuss DNR or withdrawal of care, Hospice)? DNR status @ -No What co-morbidities impacted this encounter? (DM, HTN, Smoking, COPD, CAD, Cancer, CVA, ARF, Chemo, Hep., AIDS, mental health diagnosis, sleep apnea, morbid obesity)? @ -None Was patient admitted / discharged? Hospital course, mention meds given and route, prescriptions, significant lab abnormalities, going to OR and other pertinent info. @ -Discharge. 38-year-old male presents emergency department for complaint of right ankle pain. No acute abnormalities noted on physical exam. He is offered medication such as Tylenol Motrin however he is declined. X-ray is unremarkable. Continue supportive treatment at home. Case discussed with Dr. Nino Undiagnosed new problem with uncertain prognosis? @ -No Drug Therapy requiring intensive monitoring for toxicity (Heparin, Nitro, Insulin, Cardizem)? @ -No Were any procedures done? @ -No Diagnosis/symptom? @ -ankle sprain Acute, or Chronic, or Acute on Chronic? @ -acute Uncomplicated (without systemic symptoms) or Complicated (systemic symptoms)? @ -uncomplicated Side effects of treatment? @ -No Exacerbation, Progression, or Severe Exacerbation? @ -No Poses a threat to life or bodily function? How? (Chest pain, [place], [place], pneumonia, PE, COPD, DKA, ARF, appy, cholecystitis, CVA, Diverticulitis, Homicidal, Suicidal, threat to staff... and all critical care pts) @ -No Disposition Clinical Impression: Ankle sprain Disposition: HOME SELF-CARE Condition: Good Instructions (If sedation given, give patient instructions): Ankle Sprain (ED) Additional Instructions: Please return to the Emergency Department if symptoms worsen or any other concerns. Is patient prescribed a controlled substance at d/c from ED?: No Referrals: None,Stated [Primary Care Provider] - 1-2 days Time of Disposition: 03:31
--- NOTE | 2024-10-01 03:24 | XR ---
EXAM: XR Right Ankle Complete, 3 or More Views CLINICAL HISTORY: ITS.REASON XR Reason: medial pain TECHNIQUE: Frontal, lateral and oblique views of the right ankle. COMPARISON: No relevant prior studies available. FINDINGS: Bones/joints: Diffuse osseous demineralization. No acute fracture or subluxation. Soft tissues: Unremarkable. IMPRESSION: No acute fracture or subluxation.
[2024-10-01 04:45] VITALS: BP 122/76; PULSE 78; RESP 18; TEMP 97.7
== END 2024-10-01 04:20 | disposition home or self-care (01) ==
LOC: EC 02:04
DX: S93.401A Sprain of unspecified ligament of right ankle, initial encounter (principal); F17.290 Nicotine dependence, other tobacco product, uncomplicated; X58.XXXA Exposure to other specified factors, initial encounter
CPT/HCPCS: 99283

== ENCOUNTER 2024-10-24 03:52 | Emergency (ER) | payer OTHER ==
[2024-10-24 03:58] VITALS: RESP 18
--- NOTE | 2024-10-24 04:24 | ED ---
General Adult HPI - General Chief complaint: Psychiatric Symptoms Stated complaint: Mental health Time Seen by Provider: 10/24/24 03:55 Source: patient, RN notes reviewed, old records reviewed Mode of arrival: ambulatory Limitations: no limitations - History of Present Illness Initial comments: Patient is a 38-year-old male who is currently homeless who presents emergency department for psychiatric evaluation. States he feels more depressed. States he is having passive suicidal ideations with no specific plan or attempts. Does have a history of a prior attempt when he was 12 years old he did attempt to hang himself. No recent attempts. Recently did [facility] ago. Denies any homicidal ideations, times, plans. Denies any hallucinations. Denies any alcohol use but does endorse occasional cocaine use. Denies any other acute complaints at this time. Presents for psychiatric evaluation. - Related Data Previous Rx's Medication Instructions Recorded ARIPiprazole [Abilify] 5 mg PO DAILY 30 Days #30 tab 09/29/24 Doxepin [SINEquan] 25 mg PO HS 30 Days #30 cap 09/29/24 Nicotine 14Mg/24Hr Patch [Habitrol] 1 patch TRANSDERM DAILY 14 Days 09/29/24 #14 patch Sertraline [Zoloft] 100 mg PO DAILY 30 Days #30 tab 09/29/24 hydrOXYzine pamoate [Vistaril] 50 mg PO DAILY PRN 30 Days #60 cap 09/29/24 Allergies Allergy/AdvReac Type Severity Reaction Status Date / Time No Known Allergies Allergy Verified 10/24/24 03:57 Review of Systems ROS Statement: Those systems with pertinent positive or pertinent negative responses have been documented in the HPI. Review of Systems: CONST: Denies fever EYES: Denies blurry vision ENT: Denies nasal congestion C/V: Denies Chest pain RESP: Denies shortness of breath GI: Denies abdominal pain : Denies dysuria SKIN: Denies rash. MSK: Denies joint pain. NEURO: Denies headache ROS Other: All systems not noted in ROS Statement are negative. Past Medical History Past Medical History: No Reported History History of Any Multi-Drug Resistant Organisms: None Reported Past Surgical History: No Surgical Hx Reported Past Psychological History: Bipolar, Depression, Schizophrenia Smoking Status: Current every day smoker, Vaper Past Alcohol Use History: Occasional Past Drug Use History: Marijuana General Exam - General Exam Comments Initial Comments: General: Appears in no acute distress. HEAD: Normal with no signs of head trauma. EYES: EOMI. ENT: Hearing grossly intact. RESPIRATORY: No respiratory distress. C/V: Regular rate and rhythm. ABD: Abdomen is nondistended. EXT: No obvious deformity. SKIN: No rashes or lesions observed on exposed skin. NEURO: Alert and oriented. Limitations: no limitations Course Vital Signs 10/24/24 03:54 Temperature 97.8 F Pulse Rate 76 Respiratory 18 Rate Blood Pressure 123/82 O2 Sat by Pulse 99 Oximetry Medical Decision Making - Medical Decision Making Was pt. sent in by a medical professional or institution (, PA, ENGAGEMENT ENGINEER, urgent care, hospital, or long-term...) When possible be specific @ -No Did you speak to anyone other than the patient for history (EMS, parent, family, police, friend...)? What history was obtained from this source @ -No Did you review nursing and triage notes (agree or disagree)? Why? @ -I reviewed and agree with nursing and triage notes Were old charts reviewed (outside hosp., previous admission, EMS record, old EKG, old radiological studies, urgent care reports/EKG's, long-term records)? Report findings @ -No old charts were reviewed Differential Diagnosis (chest pain, altered mental status, abdominal pain women, abdominal pain men, vaginal bleeding, weakness, fever, dyspnea, syncope, headache, dizziness, GI bleed, back pain, seizure, CVA, palpatations, mental health, musculoskeletal)? @ -Differential Mental Health Depression, anxiety, bipolar, psychosis, schizophrenia, borderline personality, situational depression, adjustment disorder, behavioral disorder, brain tumor, malingering, substance abuse, encephalopathy, medication reaction, dementia, hypothyroidism, degenerative neurologic disorder, lupus.... This is not meant to be all-inclusive list EKG interpreted by me (3pts min.). @ -None done X-rays interpreted by me (1pt min.). @ -None done CT interpreted by me (1pt min.). @ -None done U/S interpreted by me (1pt. min.). @ -None done What testing was considered but not performed or refused? (CT, X-rays, U/S, labs)? Why? @ -None What meds were considered but not given or refused? Why? @ -None Did you discuss the management of the patient with other professionals (professionals i.e. , PA, ENGAGEMENT ENGINEER, lab, RT, psych nurse, social media manager, competitive intelligence analyst, teacher, special weapons and tactics officer, family service caseworker)? Give summary @ -EPS notified of the consult Was smoking cessation discussed for >3mins.? @ -No Was critical care preformed (if so, how long)? @ -No Were there social determinants of health that impacted care today? How? (Homelessness, low income, unemployed, alcoholism, drug addiction, transportation, low edu. Level, literacy, decrease access to med. care, long term, rehab)? @ -No Was there de-escalation of care discussed even if they declined (Discuss DNR or withdrawal of care, Hospice)? DNR status @ -No What co-morbidities impacted this encounter? (DM, HTN, Smoking, COPD, CAD, Cancer, CVA, ARF, Chemo, Hep., AIDS, mental health diagnosis, sleep apnea, morbid obesity)? @ -None Was patient admitted / discharged? Hospital course, mention meds given and route, prescriptions, significant lab abnormalities, going to OR and other pertinent info. @ -Based on patient's presentation and physical exam, presents emergency department complaining of worsening depression, passive suicidal ideations. Suicide precautions ordered. BAT is 0. UDS is pending. Vitals are within acceptable limits. At this time patient is medically cleared for evaluation by psychiatry. Disposition pending psychiatric evaluation. EPS notified of the consult. EPS Moraima evaluated the patient. Determined that he does meet inpatient psychiatric criteria. Patient will be transferred. Clinical certificate completed by myself. Transfer labs ordered. Undiagnosed new problem with uncertain prognosis? @ -No Drug Therapy requiring intensive monitoring for toxicity (Heparin, Nitro, Insulin, Cardizem)? @ -No Were any procedures done? @ -No Diagnosis/symptom? @ -Depression, suicidal ideation Acute, or Chronic, or Acute on Chronic? @ -Acute Uncomplicated (without systemic symptoms) or Complicated (systemic symptoms)? @ -Complicated Side effects of treatment? @ -None Exacerbation, Progression, or Severe Exacerbation] @ -No Poses a threat to life or bodily function? @ -Yes Disposition Clinical Impression: Depression, Suicidal ideation Disposition: TRANSFER TO PSYCH HOSP/UNIT Condition: Stable Referrals: None,Stated [Primary Care Provider] - 1-2 days
[2024-10-24 06:20] LABS: Appearance,Urine Clear (Clear); Bilirubin,Urine Negative (Negative); Blood,Urine Negative (Negative); Color,Urine Yellow; Glucose,Urine (UA) Negative (Negative); Ketones,Urine Negative (Negative); Leukocyte Esterase,Urine Negative (Negative); Nitrite,Urine Negative (Negative); PH, Urine 5.5 (5.0-8.0); Protein,Urine Negative (Negative); Specific Gravity,Urine 1.031 (1.001-1.035); Urobilinogen,Urine <2.0 mg/dL (<2.0)
[2024-10-24 06:20] LABS: Amphetamine Screen,Urine Not Detected (NotDetected); Barbiturate Screen,Urine Not Detected (NotDetected); Benzodiazepines Screen,Urine Not Detected (NotDetected); Cocaine Screen,Urine Detected (NotDetected); Methadone Screen, Urine Not Detected (NotDetected); Opiate Screen,Urine Not Detected (NotDetected); Oxycodone Screen, Urine Not Detected (NotDetected); Phencyclidine Screen,Urine Not Detected (NotDetected); Tricyclic Antidepressant,Urine Not Detected (NotDetected); Urn Cannabinoid Scrn Detected (NotDetected)
[2024-10-24 06:56] LABS: Basophils # (A) 0.07 10*3/uL (0.00-0.10); Basophils % (A) 0.5 %; Eosinophils # (A) 0.06 10*3/uL (0.04-0.35); Eosinophils % (A) 0.4 %; HCT 38.6 % (39.6-50.0); HGB 12.8 g/dL (13.0-17.0); Lymphocytes # (A) 4.66 10*3/uL (0.90-5.00); Lymphocytes % (A) 32.4 %; MCH 29.3 pg (27.0-32.0); MCHC 33.2 g/dL (32.0-37.0); MCV 88.3 fL (80.0-97.0); Mean Platelet Volume 9.8 fL (9.5-12.2); Monocytes # (A) 1.05 10*3/uL (0.20-1.00); Monocytes % (A) 7.3 %; Neutrophils # (A) 8.52 10*3/uL (1.80-7.70); Neutrophils % (A) 59.1 %; Platelet Count 405 10*3/uL (140-440); RBC 4.37 10*6/uL (4.40-5.60); RDW 14.2 % (11.5-14.5)
[2024-10-24 07:41] LABS: ALT 24 U/L (4-49); AST 22 U/L (17-59); African American GFR (CKD) >90 (>60 ml/min/1.73 sqM); Albumin 3.6 g/dL (3.5-5.0); Alkaline Phosphatase 69 U/L (38-126); Anion Gap 8 mmol/L; Blood Urea Nitrogen 17 mg/dL (9-20); Calcium 9.4 mg/dL (8.4-10.2); Carbon Dioxide 27 mmol/L (22-30); Chloride 101 mmol/L (98-107); Glucose 95 mg/dL (74-99); Non-African American GFR(CKD) >90 (>60 ml/min/1.73 sqM); Potassium 4.4 mmol/L (3.5-5.1); Sodium 136 mmol/L (137-145); Total Bilirubin 0.7 mg/dL (0.2-1.3); Total Protein 6.2 g/dL (6.3-8.2)
[2024-10-24 10:32] VITALS: BP 106/68; PULSE 69; TEMP 97.4
== END 2024-10-24 13:15 ==
LOC: EC 03:52
DX: F32.A Depression, unspecified (principal); R45.851 Suicidal ideations; F17.290 Nicotine dependence, other tobacco product, uncomplicated
CPT/HCPCS: 36415; 80053; 80306; 81003; 82075; 85025; 87635; 99285